=== PATIENT | female | born 1955 | race Caucasian/White ===

== ENCOUNTER 2017-03-20 11:38 | Inpatient (IN) | payer MEDICARE, OTHER ==
[2017-03-20 17:04] LABS: ADD MAN DIFF? NO
[2017-03-20] MEDS: CEFEPIME 2GM/50 ML (PMX) 50 ML IVPB (17:05)
[2017-03-20] MEDS: ONDANSETRON 4 MG INJ IV (17:05)
[2017-03-20 17:06] LABS: BASOPHILS % 0.2 % (0.0-2.0); EOSINOPHILS # 0.1 10^3/ul (0.0-0.5); EOSINOPHILS % 0.8 % (0.0-7.0); HEMOGLOBIN 10.3 g/dl (12.0-16.0); LYMPHOCYTES # 1.6 10^3/ul (0.8-2.9); LYMPHOCYTES % 16.3 % (15.0-51.0); MEAN CORPUSCULAR HEMOGLOBIN 31.7 pg (29.0-33.0); MEAN CORPUSCULAR HGB CONC 33.2 g/dl (32.0-37.0); MEAN CORPUSCULAR VOLUME 95.4 fl (82.0-101.0); MEAN PLATELET VOLUME 10.5 fl (7.4-10.4); MONOCYTE # 0.8 10^3/ul (0.3-0.9); MONOCYTES % 7.8 % (0.0-11.0); NEUTROPHIL # 7.4 10^3/ul (1.6-7.5); NEUTROPHILS % 74.5 % (39.0-77.0); PLATELET COUNT 161 10^3/UL (140-415); RED BLOOD COUNT 3.25 10^6/ul (4.20-5.40); RED CELL DISTRIBUTION WIDTH 14.1 % (11.5-14.5)
[2017-03-20] MEDS: HYDROmorphONE 0.5 MG/0.5 ML SYG IV (17:06)
[2017-03-20 17:23] LABS: INR 1.12; PROTIME 14.6 Sec (11.9-14.9); PT RATIO 1.1
[2017-03-20 17:24] LABS: PARTIAL THROMBOPLASTIN TIME 34.3 Sec (25.0-35.0)
[2017-03-20 17:29] LABS: ALANINE AMINOTRANSFERASE 34 IU/L (13-69); ALBUMIN 4.2 g/dl (3.3-4.9); ALBUMIN/GLOBULIN RATIO 1.23; ALKALINE PHOSPHATASE 96 IU/L (42-121); ANION GAP 18 (8-16); ASPARTATE AMINO TRANSFERASE 24 IU/L (15-46); BILIRUBIN,INDIRECT 0.3 mg/dl (0-1.1); BILIRUBIN,TOTAL 0.3 mg/dl (0.2-1.3); BLOOD UREA NITROGEN 39 mg/dl (7-20); CALCIUM 8.6 mg/dl (8.4-10.2); CARBON DIOXIDE 28 mmol/L (21-31); CHLORIDE 95 mmol/L (97-110); CREATININE 9.23 mg/dl (0.44-1.00); GLUCOSE 141 mg/dl (70-220); POTASSIUM 4.8 mmol/L (3.5-5.1); SODIUM 136 mmol/L (135-144); TOTAL PROTEIN 7.6 g/dl (6.1-8.1)
[2017-03-20 17:34] LABS: LACTIC ACID 1.2 mmol/L (0.5-2.0)
[2017-03-20 17:38] LABS: TROPONIN-I 0.014 ng/ml (0.00-0.12)
[2017-03-20] MEDS: VANCOMYCIN 1 GM (PMX) 250 ML IVPB (17:59)
[2017-03-20] MEDS ORDERED: ONDANSETRON 4 MG INJ IV (18:30)
[2017-03-20] MEDS ORDERED: ACETAMINOPHEN 325 MG TAB PO (18:30)
[2017-03-20] MEDS ORDERED: NACL 0.9% 3 ML SYG IV (19:30)
[2017-03-20] MEDS ORDERED: VANCOMYCIN IV PER PHARMACY XX (19:30)
[2017-03-20] MEDS: HYDROCODONE/APAP (5/325) TAB PO (19:37)
[2017-03-20 19:51] LABS: ERYTHROCYTE SEDIMENTATION RATE 54 mm/Hr (0-30)
[2017-03-20 21:35] LABS: LACTIC ACID 0.6 mmol/L (0.5-2.0)
[2017-03-20] MEDS: COLLAGENASE 30 GM TUBE TOP (23:00)
[2017-03-20] MEDS ORDERED: PENDING SANTYL ORDER FOR WOUND CARE XX (23:00)
[2017-03-20] MEDS ORDERED: COLLAGENASE 30 GM TUBE TOP (23:00)
[2017-03-20] MEDS: ACETAMINOPHEN 325 MG TAB PO (23:22)
[2017-03-20] MEDS: ATORVASTATIN 20 MG TAB PO (23:22)
[2017-03-20] MEDS: HEPARIN 5,000 UNIT/0.5 ML VIAL SC (23:30)
[2017-03-21 00:50] LABS: LACTIC ACID 0.9 mmol/L (0.5-2.0)
[2017-03-21] MEDS: COLLAGENASE 30 GM TUBE TOP ×2 (02:27→08:20)
[2017-03-21] MEDS: VANCOMYCIN 500MG/NS (PMX) 100 ML IVPB (02:27)
[2017-03-21] MEDS: PANTOPRAZOLE (EC) 40 MG TAB PO (05:38)
[2017-03-21 05:52] LABS: ADD MAN DIFF? NO
[2017-03-21 06:05] LABS: BASOPHILS % 0.3 % (0.0-2.0); EOSINOPHILS # 0.2 10^3/ul (0.0-0.5); EOSINOPHILS % 2.3 % (0.0-7.0); HEMATOCRIT 28.6 % (37.0-47.0); HEMOGLOBIN 9.3 g/dl (12.0-16.0); LYMPHOCYTES # 1.3 10^3/ul (0.8-2.9); LYMPHOCYTES % 18.9 % (15.0-51.0); MEAN CORPUSCULAR HEMOGLOBIN 31.3 pg (29.0-33.0); MEAN CORPUSCULAR HGB CONC 32.5 g/dl (32.0-37.0); MEAN CORPUSCULAR VOLUME 96.3 fl (82.0-101.0); MEAN PLATELET VOLUME 10.9 fl (7.4-10.4); MONOCYTE # 0.6 10^3/ul (0.3-0.9); MONOCYTES % 8.4 % (0.0-11.0); NEUTROPHIL # 4.8 10^3/ul (1.6-7.5); NEUTROPHILS % 69.8 % (39.0-77.0); PLATELET COUNT 137 10^3/UL (140-415); RED BLOOD COUNT 2.97 10^6/ul (4.20-5.40); RED CELL DISTRIBUTION WIDTH 14.3 % (11.5-14.5)
[2017-03-21 06:05] LABS: WHITE BLOOD COUNT 6.8 10^3/ul (4.8-10.8)
[2017-03-21 06:27] LABS: ANION GAP 15 (8-16); BLOOD UREA NITROGEN 46 mg/dl (7-20); CALCIUM 8.6 mg/dl (8.4-10.2); CARBON DIOXIDE 27 mmol/L (21-31); CHLORIDE 98 mmol/L (97-110); CREATININE 10.56 mg/dl (0.44-1.00); GLUCOSE 108 mg/dl (70-220); MAGNESIUM 2.4 mg/dl (1.7-2.5); PHOSPHORUS 5.1 mg/dl (2.5-4.9); POTASSIUM 4.4 mmol/L (3.5-5.1); SODIUM 136 mmol/L (135-144)
[2017-03-21 07:01] LABS: HEMOGLOBIN A1C 6.4 % (0-5.9)
[2017-03-21] MEDS: SEVELAMER 800 MG TAB PO ×3 (08:18→17:27)
[2017-03-21] MEDS: ASPIRIN (EC) 81 MG TAB PO (08:19)
[2017-03-21] MEDS: CALCIUM ACETATE 667 MG CAP PO ×3 (08:19→17:28)
[2017-03-21] MEDS: MULTIVIT/CA CARB/B CMPLX/FA TAB PO (08:20)
[2017-03-21] MEDS: HEPARIN 5,000 UNIT/0.5 ML VIAL SC ×2 (08:23→20:58)
[2017-03-21] MEDS: AMLODIPINE 10 MG TAB PO (08:24)
[2017-03-21] MEDS: ACETAMINOPHEN 325 MG TAB PO (13:38)
[2017-03-21] MEDS: CEFEPIME 1GM/50 ML (PMX) 50 ML IVPB (17:29)
[2017-03-21] MEDS: ATORVASTATIN 20 MG TAB PO (20:56)
[2017-03-22] MEDS: PANTOPRAZOLE (EC) 40 MG TAB PO (05:38)
[2017-03-22 06:43] LABS: ADD MAN DIFF? NO
[2017-03-22 06:44] LABS: ANION GAP 15 (8-16); BLOOD UREA NITROGEN 32 mg/dl (7-20); CALCIUM 8.6 mg/dl (8.4-10.2); CARBON DIOXIDE 32 mmol/L (21-31); CHLORIDE 95 mmol/L (97-110); GLUCOSE 137 mg/dl (70-220); MAGNESIUM 2.2 mg/dl (1.7-2.5); PHOSPHORUS 4.2 mg/dl (2.5-4.9); POTASSIUM 4.3 mmol/L (3.5-5.1); SODIUM 138 mmol/L (135-144)
[2017-03-22 06:50] LABS: BASOPHILS % 0.2 % (0.0-2.0); EOSINOPHILS # 0.2 10^3/ul (0.0-0.5); HEMOGLOBIN 9.3 g/dl (12.0-16.0); LYMPHOCYTES % 17.8 % (15.0-51.0); MEAN CORPUSCULAR HEMOGLOBIN 31.4 pg (29.0-33.0); MEAN CORPUSCULAR HGB CONC 33.2 g/dl (32.0-37.0); MEAN CORPUSCULAR VOLUME 94.6 fl (82.0-101.0); MEAN PLATELET VOLUME 11.2 fl (7.4-10.4); MONOCYTE # 0.6 10^3/ul (0.3-0.9); MONOCYTES % 9.8 % (0.0-11.0); NEUTROPHIL # 3.9 10^3/ul (1.6-7.5); NEUTROPHILS % 68.9 % (39.0-77.0); PLATELET COUNT 149 10^3/UL (140-415); RED BLOOD COUNT 2.96 10^6/ul (4.20-5.40); RED CELL DISTRIBUTION WIDTH 13.7 % (11.5-14.5)
[2017-03-22 06:50] LABS: WHITE BLOOD COUNT 5.7 10^3/ul (4.8-10.8)
[2017-03-22] MEDS: MULTIVIT/CA CARB/B CMPLX/FA TAB PO (08:20)
[2017-03-22] MEDS: SEVELAMER 800 MG TAB PO ×3 (08:20→16:59)
[2017-03-22] MEDS: ASPIRIN (EC) 81 MG TAB PO (08:21)
[2017-03-22] MEDS: CALCIUM ACETATE 667 MG CAP PO ×3 (08:21→17:00)
[2017-03-22] MEDS: COLLAGENASE 30 GM TUBE TOP (08:23)
[2017-03-22] MEDS: AMLODIPINE 10 MG TAB PO (08:24)
[2017-03-22] MEDS: HEPARIN 5,000 UNIT/0.5 ML VIAL SC ×2 (09:03→20:36)
[2017-03-22] MEDS: CEFEPIME 1GM/50 ML (PMX) 50 ML IVPB (16:58)
[2017-03-22] MEDS: ATORVASTATIN 20 MG TAB PO (20:33)
[2017-03-22] MEDS: HYDROCODONE/APAP (5/325) TAB PO (21:28)
[2017-03-22] MEDS: morphine 2 MG INJ IV (23:52)
[2017-03-23] MEDS: PANTOPRAZOLE (EC) 40 MG TAB PO (05:38)
[2017-03-23 06:50] LABS: VANCOMYCIN,RANDOM 13.9 ug/ml
[2017-03-23 07:11] LABS: ANION GAP 19 (8-16); BLOOD UREA NITROGEN 46 mg/dl (7-20); CALCIUM 8.3 mg/dl (8.4-10.2); CARBON DIOXIDE 28 mmol/L (21-31); CHLORIDE 97 mmol/L (97-110); CREATININE 9.46 mg/dl (0.44-1.00); GLUCOSE 121 mg/dl (70-220); MAGNESIUM 2.3 mg/dl (1.7-2.5); PHOSPHORUS 3.9 mg/dl (2.5-4.9); POTASSIUM 4.8 mmol/L (3.5-5.1); SODIUM 139 mmol/L (135-144)
[2017-03-23] MEDS: MULTIVIT/CA CARB/B CMPLX/FA TAB PO (08:40)
[2017-03-23] MEDS: ASPIRIN (EC) 81 MG TAB PO (08:40)
[2017-03-23] MEDS: CALCIUM ACETATE 667 MG CAP PO ×3 (08:40→18:04)
[2017-03-23] MEDS: SEVELAMER 800 MG TAB PO ×3 (08:41→18:03)
[2017-03-23] MEDS: HEPARIN 5,000 UNIT/0.5 ML VIAL SC ×2 (08:48→21:59)
[2017-03-23] MEDS: COLLAGENASE 30 GM TUBE TOP ×2 (09:00→17:40)
[2017-03-23] MEDS: AMLODIPINE 10 MG TAB PO (09:00)
[2017-03-23] MEDS: VANCOMYCIN 1 GM 250 ML IVPB (10:18)
[2017-03-23] MEDS: CEFEPIME 1GM/50 ML (PMX) 50 ML IVPB (16:04)
[2017-03-23] MEDS: LEVOFLOXACIN 500 MG TAB PO (18:03)
[2017-03-23 18:18] LABS: HEPATITIS B SURFACE ANTIGEN NEGATIVE (NEGATIVE)
[2017-03-23 18:46] LABS: HEPATITIS B SURFACE ANTIBODY POSITIVE (NEGATIVE)
[2017-03-23] MEDS: ATORVASTATIN 20 MG TAB PO (21:57)
[2017-03-23] MEDS: ACETAMINOPHEN 325 MG TAB PO (23:17)
[2017-03-24] MEDS: PANTOPRAZOLE (EC) 40 MG TAB PO (05:30)
[2017-03-24] MEDS: SEVELAMER 800 MG TAB PO ×2 (09:19→12:13)
[2017-03-24] MEDS: CALCIUM ACETATE 667 MG CAP PO ×2 (09:19→12:13)
[2017-03-24] MEDS: MULTIVIT/CA CARB/B CMPLX/FA TAB PO (09:19)
[2017-03-24] MEDS: ASPIRIN (EC) 81 MG TAB PO (09:20)
[2017-03-24] MEDS: AMLODIPINE 10 MG TAB PO (09:20)
[2017-03-24] MEDS: COLLAGENASE 30 GM TUBE TOP (09:21)
[2017-03-24] MEDS: HEPARIN 5,000 UNIT/0.5 ML VIAL SC (09:24)
== END 2017-03-24 12:45 | disposition home health service (06) | DRG 638 ==
LOC: E/R 11:38 → MS2 18:29
PROC: 5A1D70Z Performance of Urinary Filtration, Intermittent, Less than 6 Hours Per Day (ICD-10-PCS; 2017-03-20)
PROC: 5A1D70Z Performance of Urinary Filtration, Intermittent, Less than 6 Hours Per Day (ICD-10-PCS; 2017-03-23)
PROC: 5A1D70Z Performance of Urinary Filtration, Intermittent, Less than 6 Hours Per Day (ICD-10-PCS; principal; 2017-03-24)
DX: E11.621 Type 2 diabetes mellitus with foot ulcer (principal); M86.171 Other acute osteomyelitis, right ankle and foot; I12.0 Hypertensive chronic kidney disease with stage 5 chronic kidney disease or end stage renal disease; E11.22 Type 2 diabetes mellitus with diabetic chronic kidney disease; N18.6 End stage renal disease; L03.115 Cellulitis of right lower limb; E11.51 Type 2 diabetes mellitus with diabetic peripheral angiopathy without gangrene; E11.42 Type 2 diabetes mellitus with diabetic polyneuropathy; I25.10 Atherosclerotic heart disease of native coronary artery without angina pectoris; I25.5 Ischemic cardiomyopathy; L97.512 Non-pressure chronic ulcer of other part of right foot with fat layer exposed; Z79.4 Long term (current) use of insulin; Z99.2 Dependence on renal dialysis; Z89.431 Acquired absence of right foot
CPT/HCPCS: 36415; 71045; 73630; 73718; 80048; 80053; 80202; 83036; 83605; 83735; 84100; 84484; 85025; 85610; 85651; 85730; 86140; 86706; 87040; 87340; 90935; 93005; 96374; 96375; 99285-25

== ENCOUNTER 2017-07-17 08:53 | Emergency (ER) | payer MEDICARE, OTHER ==
[2017-07-17] MEDS: ONDANSETRON 4 MG INJ IV ×2 (12:02→12:49)
[2017-07-17] MEDS: morphine 4 MG/ML VIAL IV (12:02)
[2017-07-17] MEDS: SOD CHLORIDE 0.9% 1,000 ML IV (12:04)
[2017-07-17 12:31] LABS: ADD MAN DIFF? NO
[2017-07-17] MEDS: HYDROmorphONE 1 MG/5 ML IV SYRINGE IV (12:33)
[2017-07-17 12:34] LABS: BASOPHILS % 0.4 % (0.0-2.0); EOSINOPHILS # 0.3 10^3/ul (0.0-0.5); EOSINOPHILS % 3.7 % (0.0-7.0); HEMATOCRIT 32.4 % (37.0-47.0); HEMOGLOBIN 10.5 g/dl (12.0-16.0); LYMPHOCYTES # 1.4 10^3/ul (0.8-2.9); LYMPHOCYTES % 18.2 % (15.0-51.0); MEAN CORPUSCULAR HEMOGLOBIN 29.6 pg (29.0-33.0); MEAN CORPUSCULAR HGB CONC 32.4 g/dl (32.0-37.0); MEAN CORPUSCULAR VOLUME 91.3 fl (82.0-101.0); MONOCYTE # 0.5 10^3/ul (0.3-0.9); NEUTROPHIL # 5.4 10^3/ul (1.6-7.5); NEUTROPHILS % 70.4 % (39.0-77.0); PLATELET COUNT 173 10^3/UL (140-415); RED BLOOD COUNT 3.55 10^6/ul (4.20-5.40)
[2017-07-17 12:34] LABS: WHITE BLOOD COUNT 7.6 10^3/ul (4.8-10.8)
[2017-07-17 12:51] LABS: ALANINE AMINOTRANSFERASE 25 IU/L (13-69); ALBUMIN 4.3 g/dl (3.3-4.9); ALBUMIN/GLOBULIN RATIO 1.19; ALKALINE PHOSPHATASE 132 IU/L (42-121); ANION GAP 21 (8-16); ASPARTATE AMINO TRANSFERASE 22 IU/L (15-46); BILIRUBIN,INDIRECT 0.1 mg/dl (0-1.1); BILIRUBIN,TOTAL 0.1 mg/dl (0.2-1.3); BLOOD UREA NITROGEN 36 mg/dl (7-20); CALCIUM 8.2 mg/dl (8.4-10.2); CARBON DIOXIDE 28 mmol/L (21-31); CHLORIDE 97 mmol/L (97-110); CREATININE 8.15 mg/dl (0.44-1.00); GLUCOSE 140 mg/dl (70-220); SODIUM 141 mmol/L (135-144); TOTAL PROTEIN 7.9 g/dl (6.1-8.1)
[2017-07-17 13:20] LABS: INR 1.07; PARTIAL THROMBOPLASTIN TIME 33.3 Sec (25.0-35.0); PT RATIO 1.1
== END 2017-07-17 14:12 | disposition home or self-care (01) ==
LOC: E/R 08:53
DX: G44.209 Tension-type headache, unspecified, not intractable (principal); I12.0 Hypertensive chronic kidney disease with stage 5 chronic kidney disease or end stage renal disease; N18.6 End stage renal disease; Z99.2 Dependence on renal dialysis; Z79.82 Long term (current) use of aspirin
CPT/HCPCS: 70450; 80053; 85025; 85610; 85730; 93005; 96374; 96375; 96376; 99285-25

== ENCOUNTER 2017-07-19 19:53 | Inpatient (IN) | payer MEDICARE, OTHER ==
[2017-07-19] MEDS: ONDANSETRON 4 MG INJ IV (20:29)
[2017-07-19] MEDS: HYDROmorphONE 1 MG/5 ML IV SYRINGE IV (20:29)
[2017-07-19] MEDS: SODIUM CHLORIDE 0.9% 1L BAG IV* (20:29)
[2017-07-19] MEDS: ACETAMINOPHEN 500 MG TAB PO (20:29)
[2017-07-19 20:44] LABS: ADD MAN DIFF? NO
[2017-07-19 20:45] LABS: BASOPHILS % 0.3 % (0.0-2.0); EOSINOPHILS # 0.1 10^3/ul (0.0-0.5); EOSINOPHILS % 0.8 % (0.0-7.0); HEMATOCRIT 34.6 % (37.0-47.0); HEMOGLOBIN 10.9 g/dl (12.0-16.0); LYMPHOCYTES # 1.3 10^3/ul (0.8-2.9); LYMPHOCYTES % 14.5 % (15.0-51.0); MEAN CORPUSCULAR HGB CONC 31.5 g/dl (32.0-37.0); MEAN PLATELET VOLUME 10.6 fl (7.4-10.4); MONOCYTE # 0.6 10^3/ul (0.3-0.9); MONOCYTES % 7.1 % (0.0-11.0); NEUTROPHIL # 6.9 10^3/ul (1.6-7.5); PLATELET COUNT 207 10^3/UL (140-415); RED BLOOD COUNT 3.76 10^6/ul (4.20-5.40); RED CELL DISTRIBUTION WIDTH 13.8 % (11.5-14.5)
[2017-07-19 20:45] LABS: WHITE BLOOD COUNT 8.9 10^3/ul (4.8-10.8)
[2017-07-19 21:00] LABS: ALANINE AMINOTRANSFERASE 18 IU/L (13-69); ALBUMIN 4.5 g/dl (3.3-4.9); ALBUMIN/GLOBULIN RATIO 1.09; ALKALINE PHOSPHATASE 142 IU/L (42-121); ANION GAP 20 (8-16); ASPARTATE AMINO TRANSFERASE 23 IU/L (15-46); BILIRUBIN,INDIRECT 0.2 mg/dl (0-1.1); BILIRUBIN,TOTAL 0.2 mg/dl (0.2-1.3); BLOOD UREA NITROGEN 39 mg/dl (7-20); CALCIUM 8.4 mg/dl (8.4-10.2); CARBON DIOXIDE 32 mmol/L (21-31); CHLORIDE 93 mmol/L (97-110); CREATININE 8.57 mg/dl (0.44-1.00); GLUCOSE 197 mg/dl (70-220); POTASSIUM 5.2 mmol/L (3.5-5.1); SODIUM 140 mmol/L (135-144); TOTAL PROTEIN 8.6 g/dl (6.1-8.1)
[2017-07-19 21:03] LABS: LACTIC ACID 1.3 mmol/L (0.5-2.0)
[2017-07-19] MEDS: CLINDAMYCIN 900 MG/D5W (PMX) 50 ML IVPB (21:09)
[2017-07-19 21:10] LABS: INR 1.15; PARTIAL THROMBOPLASTIN TIME 32.6 Sec (25.0-35.0); PROTIME 14.9 Sec (11.9-14.9); PT RATIO 1.2
[2017-07-19 21:17] LABS: TROPONIN-I < 0.012 ng/ml (0.00-0.12)
[2017-07-19] MEDS: VANCOMYCIN 1 GM (PMX) 250 ML IVPB (21:56)
[2017-07-20 01:11] LABS: LACTIC ACID 0.8 mmol/L (0.5-2.0)
[2017-07-20] MEDS ORDERED: ALBUTEROL/IPRATROPIUM (NEB) 3 ML AMP HHN (03:30)
[2017-07-20] MEDS ORDERED: NACL 0.9% 3 ML SYG IV (03:30)
[2017-07-20] MEDS ORDERED: ONDANSETRON 4 MG INJ IV (03:30)
[2017-07-20 03:32] LABS: ADD MAN DIFF? NO
[2017-07-20 03:48] LABS: HEMOGLOBIN A1C 6.5 % (0-5.9)
[2017-07-20 03:54] LABS: LACTIC ACID 0.6 mmol/L (0.5-2.0)
[2017-07-20 03:56] LABS: ALANINE AMINOTRANSFERASE 17 IU/L (13-69); ALBUMIN 3.5 g/dl (3.3-4.9); ALBUMIN/GLOBULIN RATIO 1.06; ALKALINE PHOSPHATASE 105 IU/L (42-121); ANION GAP 18 (8-16); ASPARTATE AMINO TRANSFERASE 15 IU/L (15-46); BILIRUBIN,INDIRECT 0.1 mg/dl (0-1.1); BILIRUBIN,TOTAL 0.1 mg/dl (0.2-1.3); BLOOD UREA NITROGEN 43 mg/dl (7-20); CALCIUM 7.4 mg/dl (8.4-10.2); CARBON DIOXIDE 28 mmol/L (21-31); CHLORIDE 98 mmol/L (97-110); CHOL/HDL RATIO 2.9 RATIO; CHOLESTEROL 119 mg/dl (100-200); GLUCOSE 158 mg/dl (70-220); HDL CHOLESTEROL 40 mg/dl (35-98); LDL CHOLESTEROL,CALCULATED 62 mg/dl; MAGNESIUM 2.2 mg/dl (1.7-2.5); POTASSIUM 5.2 mmol/L (3.5-5.1); SODIUM 139 mmol/L (135-144); TOTAL PROTEIN 6.8 g/dl (6.1-8.1); TRIGLYCERIDES 86 mg/dl (0-149)
[2017-07-20] MEDS ORDERED: GLUCAGON 1 MG INJ IM (04:00)
[2017-07-20] MEDS ORDERED: GLUCOSE GEL 15 GRAM TUBE BUCCAL (04:00)
[2017-07-20] MEDS ORDERED: GLUCOSE GEL 15 GRAM TUBE PO ×2 (04:00)
[2017-07-20] MEDS ORDERED: DEXTROSE 50% 50 ML SYRINGE IV (04:00)
[2017-07-20 04:31] LABS: BASOPHILS % 0.3 % (0.0-2.0); EOSINOPHILS % 0.4 % (0.0-7.0); HEMATOCRIT 26.9 % (37.0-47.0); HEMOGLOBIN 8.6 g/dl (12.0-16.0); LYMPHOCYTES # 1.2 10^3/ul (0.8-2.9); MEAN CORPUSCULAR HEMOGLOBIN 29.4 pg (29.0-33.0); MEAN CORPUSCULAR VOLUME 91.8 fl (82.0-101.0); MEAN PLATELET VOLUME 11.2 fl (7.4-10.4); MONOCYTE # 0.6 10^3/ul (0.3-0.9); MONOCYTES % 7.9 % (0.0-11.0); NEUTROPHIL # 5.4 10^3/ul (1.6-7.5); PLATELET COUNT 144 10^3/UL (140-415); RED BLOOD COUNT 2.93 10^6/ul (4.20-5.40); RED CELL DISTRIBUTION WIDTH 13.8 % (11.5-14.5)
[2017-07-20 04:31] LABS: WHITE BLOOD COUNT 7.2 10^3/ul (4.8-10.8)
[2017-07-20] MEDS: PANTOPRAZOLE (EC) 40 MG TAB PO (05:37)
[2017-07-20] MEDS: INSULIN ASPART [NOVOLOG] 3 ML PEN SC ×4 (08:00→21:00)
[2017-07-20] MEDS: SEVELAMER 800 MG TAB PO ×3 (08:02→17:16)
[2017-07-20] MEDS: CALCIUM ACETATE 667 MG CAP PO ×3 (08:02→17:16)
[2017-07-20] MEDS: CEFEPIME 1GM/50 ML (PMX) 50 ML IVPB (08:06)
[2017-07-20] MEDS: ASPIRIN (EC) 81 MG TAB PO (08:07)
[2017-07-20] MEDS: DOCUSATE SODIUM 100 MG CAP PO ×3 (08:07→22:57)
[2017-07-20] MEDS: HEPARIN 5,000 UNIT/0.5 ML VIAL SC ×2 (08:09→23:01)
[2017-07-20] MEDS ORDERED: VANCOMYCIN IV PER PHARMACY XX (09:00)
[2017-07-20] MEDS: HYDROCODONE/APAP (5/325) TAB PO ×2 (10:11→20:54)
[2017-07-20] MEDS: AMLODIPINE 10 MG TAB PO (12:02)
[2017-07-20] MEDS: VANCOMYCIN 500MG/NS (PMX) 100 ML IVPB (12:03)
[2017-07-20 15:52] LABS: HEPATITIS B SURFACE ANTIGEN NEGATIVE (NEGATIVE)
[2017-07-20] MEDS: morphine 2 MG INJ IV (17:16)
[2017-07-20] MEDS: ATORVASTATIN 20 MG TAB PO (22:57)
[2017-07-20] MEDS: INSULIN GLARGINE [LANtus] 3 ML PEN SC (23:02)
[2017-07-21] MEDS: morphine 2 MG INJ IV ×4 (01:03→23:05)
[2017-07-21] MEDS: ACCU-CHEK XX (02:00)
[2017-07-21] MEDS: ACETAMINOPHEN 325 MG TAB PO (04:24)
[2017-07-21] MEDS: PANTOPRAZOLE (EC) 40 MG TAB PO (05:56)
[2017-07-21 06:10] LABS: ADD MAN DIFF? NO
[2017-07-21 06:18] LABS: BASOPHILS % 0.2 % (0.0-2.0); EOSINOPHILS # 0.1 10^3/ul (0.0-0.5); EOSINOPHILS % 0.6 % (0.0-7.0); HEMOGLOBIN 9.2 g/dl (12.0-16.0); LYMPHOCYTES # 0.9 10^3/ul (0.8-2.9); LYMPHOCYTES % 10.3 % (15.0-51.0); MEAN CORPUSCULAR HEMOGLOBIN 28.9 pg (29.0-33.0); MEAN CORPUSCULAR HGB CONC 31.7 g/dl (32.0-37.0); MEAN CORPUSCULAR VOLUME 91.2 fl (82.0-101.0); MEAN PLATELET VOLUME 10.8 fl (7.4-10.4); MONOCYTE # 0.6 10^3/ul (0.3-0.9); MONOCYTES % 7.2 % (0.0-11.0); NEUTROPHILS % 81.5 % (39.0-77.0); PLATELET COUNT 171 10^3/UL (140-415); RED BLOOD COUNT 3.18 10^6/ul (4.20-5.40); RED CELL DISTRIBUTION WIDTH 13.6 % (11.5-14.5)
[2017-07-21 06:18] LABS: WHITE BLOOD COUNT 8.6 10^3/ul (4.8-10.8)
[2017-07-21 06:33] LABS: ANION GAP 14 (8-16); BLOOD UREA NITROGEN 26 mg/dl (7-20); CARBON DIOXIDE 33 mmol/L (21-31); CHLORIDE 96 mmol/L (97-110); GLUCOSE 78 mg/dl (70-220); MAGNESIUM 2.1 mg/dl (1.7-2.5); PHOSPHORUS 4.3 mg/dl (2.5-4.9); POTASSIUM 5.1 mmol/L (3.5-5.1); SODIUM 138 mmol/L (135-144)
[2017-07-21] MEDS: SEVELAMER 800 MG TAB PO ×3 (06:33→17:02)
[2017-07-21] MEDS: INSULIN ASPART [NOVOLOG] 3 ML PEN SC ×4 (08:00→20:34)
[2017-07-21] MEDS: HEPARIN 5,000 UNIT/0.5 ML VIAL SC ×2 (08:31→20:33)
[2017-07-21] MEDS: ASPIRIN (EC) 81 MG TAB PO (08:31)
[2017-07-21] MEDS: CALCIUM ACETATE 667 MG CAP PO ×3 (08:32→17:05)
[2017-07-21] MEDS: DOCUSATE SODIUM 100 MG CAP PO ×3 (08:32→20:32)
[2017-07-21] MEDS: CEFEPIME 1GM/50 ML (PMX) 50 ML IVPB (08:33)
[2017-07-21] MEDS: AMLODIPINE 10 MG TAB PO (08:33)
[2017-07-21] MEDS: LISINOPRIL 10 MG TAB PO (17:02)
[2017-07-21] MEDS: ATORVASTATIN 20 MG TAB PO (20:30)
[2017-07-21] MEDS: INSULIN GLARGINE [LANtus] 3 ML PEN SC (20:34)
[2017-07-21] MEDS: SOD CHLORIDE 0.9% 1,000 ML IV (23:46)
[2017-07-22] MEDS: HYDROCODONE/APAP (5/325) TAB PO ×2 (00:56→10:20)
[2017-07-22] MEDS: INSULIN ASPART [NOVOLOG] 3 ML PEN SC ×6 (01:00→20:15)
[2017-07-22] MEDS: ACCU-CHEK XX ×2 (02:00→20:15)
[2017-07-22] MEDS: PANTOPRAZOLE (EC) 40 MG TAB PO (05:37)
[2017-07-22 05:47] LABS: ADD MAN DIFF? NO
[2017-07-22 05:51] LABS: WHITE BLOOD COUNT 6.4 10^3/ul (4.8-10.8)
[2017-07-22 05:51] LABS: BASOPHILS % 0.3 % (0.0-2.0); EOSINOPHILS # 0.1 10^3/ul (0.0-0.5); HEMATOCRIT 26.5 % (37.0-47.0); HEMOGLOBIN 8.3 g/dl (12.0-16.0); LYMPHOCYTES # 1.2 10^3/ul (0.8-2.9); LYMPHOCYTES % 18.2 % (15.0-51.0); MEAN CORPUSCULAR HEMOGLOBIN 28.9 pg (29.0-33.0); MEAN CORPUSCULAR HGB CONC 31.3 g/dl (32.0-37.0); MEAN CORPUSCULAR VOLUME 92.3 fl (82.0-101.0); MONOCYTE # 0.6 10^3/ul (0.3-0.9); MONOCYTES % 9.6 % (0.0-11.0); NEUTROPHIL # 4.4 10^3/ul (1.6-7.5); NEUTROPHILS % 69.6 % (39.0-77.0); PLATELET COUNT 161 10^3/UL (140-415); RED BLOOD COUNT 2.87 10^6/ul (4.20-5.40); RED CELL DISTRIBUTION WIDTH 13.5 % (11.5-14.5)
[2017-07-22 06:17] LABS: CREATINE KINASE 26 IU/L (23-200)
[2017-07-22 06:22] LABS: VANCOMYCIN,RANDOM 14.1 ug/ml
[2017-07-22 06:23] LABS: ALANINE AMINOTRANSFERASE 16 IU/L (13-69); ALBUMIN 3.1 g/dl (3.3-4.9); ALBUMIN/GLOBULIN RATIO 1.03; ALKALINE PHOSPHATASE 85 IU/L (42-121); ANION GAP 15 (8-16); ASPARTATE AMINO TRANSFERASE 14 IU/L (15-46); BLOOD UREA NITROGEN 39 mg/dl (7-20); CALCIUM 8.8 mg/dl (8.4-10.2); CARBON DIOXIDE 30 mmol/L (21-31); CHLORIDE 98 mmol/L (97-110); CREATININE 7.95 mg/dl (0.44-1.00); GLUCOSE 98 mg/dl (70-220); MAGNESIUM 2.2 mg/dl (1.7-2.5); POTASSIUM 5.2 mmol/L (3.5-5.1); SODIUM 138 mmol/L (135-144); TOTAL PROTEIN 6.1 g/dl (6.1-8.1)
[2017-07-22 06:29] LABS: CK INDEX 0.9; CK-MB 0.23 ng/ml (0.0-2.4); TROPONIN-I 0.017 ng/ml (0.00-0.12)
[2017-07-22] MEDS: SEVELAMER 800 MG TAB PO ×3 (06:31→17:36)
[2017-07-22 06:35] LABS: FREE T4 (FREE THYROXINE) 1.62 ng/dl (0.78-2.44)
[2017-07-22] MEDS: REGADENOSON 0.4 MG/5 ML SYG (09:05)
[2017-07-22] MEDS: AMLODIPINE 5 MG TAB PO (10:01)
[2017-07-22] MEDS: ASPIRIN (EC) 81 MG TAB PO (10:02)
[2017-07-22] MEDS: CALCIUM ACETATE 667 MG CAP PO ×3 (10:02→17:36)
[2017-07-22] MEDS: LISINOPRIL 10 MG TAB PO (10:02)
[2017-07-22] MEDS: DOCUSATE SODIUM 100 MG CAP PO ×3 (10:03→20:14)
[2017-07-22] MEDS: HEPARIN 5,000 UNIT/0.5 ML VIAL SC ×2 (10:04→20:12)
[2017-07-22] MEDS: SOD CHLORIDE 0.9% 1,000 ML IV (15:30)
[2017-07-22] MEDS: VANCOMYCIN 1 GM 250 ML IVPB (15:30)
[2017-07-22] MEDS: INSULIN GLARGINE [LANtus] 3 ML PEN SC (20:10)
[2017-07-22] MEDS: ATORVASTATIN 20 MG TAB PO (20:14)
[2017-07-22] MEDS: morphine LIQ (10 MG/5 ML) CUP PO (20:16)
[2017-07-23] MEDS: PANTOPRAZOLE (EC) 40 MG TAB PO (05:52)
[2017-07-23] MEDS: SEVELAMER 800 MG TAB PO ×3 (05:52→17:16)
[2017-07-23 06:31] LABS: ANION GAP 18 (8-16); BLOOD UREA NITROGEN 23 mg/dl (7-20); CALCIUM 8.9 mg/dl (8.4-10.2); CARBON DIOXIDE 28 mmol/L (21-31); CHLORIDE 97 mmol/L (97-110); CREATININE 5.56 mg/dl (0.44-1.00); GLUCOSE 79 mg/dl (70-220); POTASSIUM 4.2 mmol/L (3.5-5.1); SODIUM 139 mmol/L (135-144)
[2017-07-23] MEDS: INSULIN ASPART [NOVOLOG] 3 ML PEN SC ×4 (08:00→21:00)
[2017-07-23] MEDS: DOCUSATE SODIUM 100 MG CAP PO ×3 (08:17→21:12)
[2017-07-23] MEDS: ASPIRIN (EC) 81 MG TAB PO (08:18)
[2017-07-23] MEDS: CALCIUM ACETATE 667 MG CAP PO ×3 (08:18→17:16)
[2017-07-23] MEDS: LISINOPRIL 10 MG TAB PO (08:19)
[2017-07-23] MEDS: AMLODIPINE 5 MG TAB PO (08:19)
[2017-07-23] MEDS: HEPARIN 5,000 UNIT/0.5 ML VIAL SC ×2 (08:20→21:11)
[2017-07-23] MEDS: HYDROCODONE/APAP (5/325) TAB PO ×2 (10:20→21:13)
[2017-07-23] MEDS: INSULIN GLARGINE [LANtus] 3 ML PEN SC (21:10)
[2017-07-23] MEDS: ATORVASTATIN 20 MG TAB PO (21:12)
[2017-07-23] MEDS: ACCU-CHEK XX (21:13)
[2017-07-24] MEDS: PANTOPRAZOLE (EC) 40 MG TAB PO (05:43)
[2017-07-24 06:02] LABS: ADD MAN DIFF? NO
[2017-07-24 06:06] LABS: BASOPHILS % 0.5 % (0.0-2.0); EOSINOPHILS # 0.2 10^3/ul (0.0-0.5); EOSINOPHILS % 2.9 % (0.0-7.0); HEMATOCRIT 26.8 % (37.0-47.0); HEMOGLOBIN 8.7 g/dl (12.0-16.0); LYMPHOCYTES # 1.4 10^3/ul (0.8-2.9); LYMPHOCYTES % 21.4 % (15.0-51.0); MEAN CORPUSCULAR HEMOGLOBIN 29.1 pg (29.0-33.0); MEAN CORPUSCULAR HGB CONC 32.5 g/dl (32.0-37.0); MEAN CORPUSCULAR VOLUME 89.6 fl (82.0-101.0); MEAN PLATELET VOLUME 10.9 fl (7.4-10.4); MONOCYTE # 0.6 10^3/ul (0.3-0.9); MONOCYTES % 9.8 % (0.0-11.0); NEUTROPHIL # 4.1 10^3/ul (1.6-7.5); NEUTROPHILS % 65.1 % (39.0-77.0); PLATELET COUNT 175 10^3/UL (140-415); RED BLOOD COUNT 2.99 10^6/ul (4.20-5.40); RED CELL DISTRIBUTION WIDTH 13.2 % (11.5-14.5)
[2017-07-24 06:06] LABS: WHITE BLOOD COUNT 6.3 10^3/ul (4.8-10.8)
[2017-07-24 06:41] LABS: ANION GAP 19 (8-16); BLOOD UREA NITROGEN 32 mg/dl (7-20); CALCIUM 8.9 mg/dl (8.4-10.2); CARBON DIOXIDE 26 mmol/L (21-31); CHLORIDE 98 mmol/L (97-110); GLUCOSE 74 mg/dl (70-220); POTASSIUM 4.5 mmol/L (3.5-5.1); SODIUM 138 mmol/L (135-144)
[2017-07-24] MEDS: SEVELAMER 800 MG TAB PO ×3 (07:30→17:21)
[2017-07-24] MEDS: CALCIUM ACETATE 667 MG CAP PO ×3 (07:35→17:21)
[2017-07-24] MEDS: INSULIN ASPART [NOVOLOG] 3 ML PEN SC ×4 (08:00→21:00)
[2017-07-24] MEDS: ASPIRIN (EC) 81 MG TAB PO (08:17)
[2017-07-24] MEDS: DOCUSATE SODIUM 100 MG CAP PO ×3 (08:17→22:00)
[2017-07-24] MEDS: POLYETHYLENE GLYCOL 17 GM PACKET PO (08:17)
[2017-07-24] MEDS: LISINOPRIL 20 MG TAB PO (08:18)
[2017-07-24] MEDS: AMLODIPINE 2.5 MG TAB PO (08:18)
[2017-07-24] MEDS: HEPARIN 5,000 UNIT/0.5 ML VIAL SC ×2 (08:18→21:00)
[2017-07-24] MEDS: DEXTROSE 50% 50 ML SYRINGE IV (08:30)
[2017-07-24] MEDS: DEXTROSE 5%-0.45% NACL 1,000 ML IV (08:38)
[2017-07-24] MEDS: ATORVASTATIN 20 MG TAB PO (22:00)
[2017-07-24] MEDS: INSULIN GLARGINE [LANtus] 3 ML PEN SC (22:02)
[2017-07-25] MEDS: DEXTROSE 5%-0.45% NACL 1,000 ML IV (00:10)
[2017-07-25] MEDS: HYDROCODONE/APAP (5/325) TAB PO ×3 (00:59→23:10)
[2017-07-25] MEDS: INSULIN ASPART [NOVOLOG] 3 ML PEN SC ×7 (01:00→21:00)
[2017-07-25] MEDS: ACCU-CHEK XX (02:00)
[2017-07-25] MEDS: PANTOPRAZOLE (EC) 40 MG TAB PO (06:00)
[2017-07-25 06:55] LABS: VANCOMYCIN,RANDOM 18.2 ug/ml
[2017-07-25] MEDS ORDERED: PROPOFOL 200 MG INJ (07:00)
[2017-07-25] MEDS ORDERED: LIDOCAINE 2% (SDV) 5 ML INJ (07:00)
[2017-07-25] MEDS: SEVELAMER 800 MG TAB PO ×4 (07:30→17:36)
[2017-07-25] MEDS: CALCIUM ACETATE 667 MG CAP PO ×4 (07:35→17:36)
[2017-07-25] MEDS ORDERED: FENTAnyl 50 MCG/ML VIAL (07:57)
[2017-07-25] MEDS ORDERED: CEFAZOLIN 1 GM INJ (08:06)
[2017-07-25] MEDS: DOCUSATE SODIUM 100 MG CAP PO ×4 (08:15→21:07)
[2017-07-25] MEDS: LISINOPRIL 20 MG TAB PO ×2 (08:15→09:54)
[2017-07-25] MEDS: POLYETHYLENE GLYCOL 17 GM PACKET PO (08:15)
[2017-07-25] MEDS: ASPIRIN (EC) 81 MG TAB PO (08:15)
[2017-07-25] MEDS: HEPARIN 5,000 UNIT/0.5 ML VIAL SC ×2 (08:15→21:00)
[2017-07-25] MEDS: AMLODIPINE 2.5 MG TAB PO ×2 (08:15→09:55)
[2017-07-25] MEDS: POLYMYXIN/BACITRACIN 1L IRRIG (08:24)
[2017-07-25] MEDS: BUPIVACAINE 0.5% (SDV) 30 ML INJ (08:24)
[2017-07-25] MEDS ORDERED: FENTAnyl 50 MCG/ML VIAL IV (09:00)
[2017-07-25] MEDS ORDERED: ALBUTEROL 0.083% (NEB) 2.5 MG/3 ML AMP HHN (09:00)
[2017-07-25] MEDS ORDERED: HYDROCODONE/APAP (5/325) TAB PO (09:00)
[2017-07-25] MEDS ORDERED: HYDROmorphONE (0.2 MG/ML) 10ML SYG IV ×2 (09:00)
[2017-07-25] MEDS ORDERED: DIPHENHYDRAMINE 50 MG INJ IV (09:00)
[2017-07-25] MEDS ORDERED: ONDANSETRON 4 MG INJ IV (09:00)
[2017-07-25] MEDS: morphine LIQ (10 MG/5 ML) CUP PO (14:13)
[2017-07-25] MEDS: VANCOMYCIN 1 GM 250 ML IVPB (17:37)
[2017-07-25] MEDS: EPOETIN 3000 UNITS/1 ML INJ (ESRD) SC (18:15)
[2017-07-25] MEDS: ACETAMINOPHEN 325 MG TAB PO (21:06)
[2017-07-25] MEDS: ATORVASTATIN 20 MG TAB PO (21:08)
[2017-07-25] MEDS: INSULIN GLARGINE [LANtus] 3 ML PEN SC (21:11)
[2017-07-26] MEDS: ACCU-CHEK XX ×2 (02:00)
[2017-07-26] MEDS: PANTOPRAZOLE (EC) 40 MG TAB PO (05:27)
[2017-07-26 06:41] LABS: ALANINE AMINOTRANSFERASE 13 IU/L (13-69); ALBUMIN 3.5 g/dl (3.3-4.9); ALBUMIN/GLOBULIN RATIO 0.97; ALKALINE PHOSPHATASE 110 IU/L (42-121); ANION GAP 17 (8-16); ASPARTATE AMINO TRANSFERASE 18 IU/L (15-46); BLOOD UREA NITROGEN 29 mg/dl (7-20); CALCIUM 8.8 mg/dl (8.4-10.2); CARBON DIOXIDE 25 mmol/L (21-31); CHLORIDE 100 mmol/L (97-110); CREATININE 7.17 mg/dl (0.44-1.00); GLUCOSE 84 mg/dl (70-220); POTASSIUM 4.4 mmol/L (3.5-5.1); SODIUM 138 mmol/L (135-144); TOTAL PROTEIN 7.1 g/dl (6.1-8.1)
[2017-07-26] MEDS: INSULIN ASPART [NOVOLOG] 3 ML PEN SC ×4 (08:00→20:18)
[2017-07-26] MEDS: DOCUSATE SODIUM 100 MG CAP PO ×3 (08:54→20:11)
[2017-07-26] MEDS: POLYETHYLENE GLYCOL 17 GM PACKET PO (08:54)
[2017-07-26] MEDS: CALCIUM ACETATE 667 MG CAP PO ×3 (08:55→16:55)
[2017-07-26] MEDS: ASPIRIN (EC) 81 MG TAB PO (08:55)
[2017-07-26] MEDS: AMLODIPINE 2.5 MG TAB PO (08:56)
[2017-07-26] MEDS: LISINOPRIL 20 MG TAB PO (08:56)
[2017-07-26] MEDS: SEVELAMER 800 MG TAB PO ×3 (08:56→16:55)
[2017-07-26] MEDS: HEPARIN 5,000 UNIT/0.5 ML VIAL SC ×2 (08:59→20:15)
[2017-07-26] MEDS: HYDROCODONE/APAP (5/325) TAB PO ×2 (09:13→20:10)
[2017-07-26] MEDS: ATORVASTATIN 20 MG TAB PO (20:10)
[2017-07-26] MEDS: INSULIN GLARGINE [LANtus] 3 ML PEN SC (20:20)
[2017-07-27] MEDS: ACCU-CHEK XX ×2 (02:00)
[2017-07-27] MEDS: HYDROCODONE/APAP (5/325) TAB PO (02:09)
[2017-07-27] MEDS: PANTOPRAZOLE (EC) 40 MG TAB PO (05:25)
[2017-07-27 07:13] LABS: ADD MAN DIFF? NO
[2017-07-27 07:20] LABS: BASOPHILS % 0.4 % (0.0-2.0); EOSINOPHILS # 0.2 10^3/ul (0.0-0.5); EOSINOPHILS % 2.2 % (0.0-7.0); HEMATOCRIT 28.1 % (37.0-47.0); HEMOGLOBIN 8.8 g/dl (12.0-16.0); LYMPHOCYTES # 1.5 10^3/ul (0.8-2.9); LYMPHOCYTES % 20.6 % (15.0-51.0); MEAN CORPUSCULAR HEMOGLOBIN 28.2 pg (29.0-33.0); MEAN CORPUSCULAR HGB CONC 31.3 g/dl (32.0-37.0); MEAN CORPUSCULAR VOLUME 90.1 fl (82.0-101.0); MONOCYTE # 0.6 10^3/ul (0.3-0.9); MONOCYTES % 8.3 % (0.0-11.0); NEUTROPHIL # 4.9 10^3/ul (1.6-7.5); NEUTROPHILS % 67.8 % (39.0-77.0); PLATELET COUNT 207 10^3/UL (140-415); RED BLOOD COUNT 3.12 10^6/ul (4.20-5.40); RED CELL DISTRIBUTION WIDTH 13.6 % (11.5-14.5)
[2017-07-27 07:20] LABS: WHITE BLOOD COUNT 7.3 10^3/ul (4.8-10.8)
[2017-07-27 07:49] LABS: INR 1.12; PROTIME 14.6 Sec (11.9-14.9); PT RATIO 1.1
[2017-07-27 07:50] LABS: PARTIAL THROMBOPLASTIN TIME 36.4 Sec (25.0-35.0)
[2017-07-27 07:55] LABS: ALANINE AMINOTRANSFERASE 14 IU/L (13-69); ALBUMIN 3.5 g/dl (3.3-4.9); ALBUMIN/GLOBULIN RATIO 0.92; ALKALINE PHOSPHATASE 90 IU/L (42-121); ANION GAP 16 (8-16); ASPARTATE AMINO TRANSFERASE 32 IU/L (15-46); BLOOD UREA NITROGEN 41 mg/dl (7-20); CALCIUM 9.4 mg/dl (8.4-10.2); CARBON DIOXIDE 28 mmol/L (21-31); CHLORIDE 100 mmol/L (97-110); CREATININE 9.31 mg/dl (0.44-1.00); GLUCOSE 77 mg/dl (70-220); POTASSIUM 4.8 mmol/L (3.5-5.1); SODIUM 139 mmol/L (135-144); TOTAL PROTEIN 7.3 g/dl (6.1-8.1)
[2017-07-27] MEDS: INSULIN ASPART [NOVOLOG] 3 ML PEN SC ×4 (08:00→21:00)
[2017-07-27] MEDS: AMLODIPINE 2.5 MG TAB PO (08:01)
[2017-07-27] MEDS: LISINOPRIL 20 MG TAB PO (08:25)
[2017-07-27] MEDS: SEVELAMER 800 MG TAB PO ×3 (08:25→17:25)
[2017-07-27] MEDS: ASPIRIN (EC) 81 MG TAB PO (08:25)
[2017-07-27] MEDS: POLYETHYLENE GLYCOL 17 GM PACKET PO (08:25)
[2017-07-27] MEDS: DOCUSATE SODIUM 100 MG CAP PO ×3 (08:26→21:00)
[2017-07-27] MEDS: HEPARIN 5,000 UNIT/0.5 ML VIAL SC ×2 (08:27→21:00)
[2017-07-27] MEDS: CALCIUM ACETATE 667 MG CAP PO ×3 (09:13→17:25)
[2017-07-27] MEDS: INSULIN GLARGINE [LANtus] 3 ML PEN SC (20:00)
[2017-07-27] MEDS: ATORVASTATIN 20 MG TAB PO (21:00)
[2017-07-28] MEDS: ACCU-CHEK XX ×2 (02:00)
[2017-07-28] MEDS: MAGNESIUM HYDROXIDE 30ML CUP PO ×2 (02:36→11:13)
[2017-07-28] MEDS: EPOETIN 3000 UNITS/1 ML INJ (ESRD) SC (02:38)
[2017-07-28] MEDS: PANTOPRAZOLE (EC) 40 MG TAB PO (05:49)
[2017-07-28] MEDS: INSULIN ASPART [NOVOLOG] 3 ML PEN SC ×2 (08:00→12:03)
[2017-07-28] MEDS: SEVELAMER 800 MG TAB PO ×2 (08:11→11:59)
[2017-07-28] MEDS: CALCIUM ACETATE 667 MG CAP PO ×2 (08:11→12:00)
[2017-07-28] MEDS: DOCUSATE SODIUM 100 MG CAP PO ×2 (08:12→12:43)
[2017-07-28] MEDS: POLYETHYLENE GLYCOL 17 GM PACKET PO (08:12)
[2017-07-28] MEDS: ASPIRIN (EC) 81 MG TAB PO (08:13)
[2017-07-28] MEDS: LISINOPRIL 20 MG TAB PO (08:14)
[2017-07-28] MEDS: HEPARIN 5,000 UNIT/0.5 ML VIAL SC (08:16)
[2017-07-28] MEDS: BISACODYL 10 MG SUPP PR (12:55)
== END 2017-07-28 16:28 | disposition home or self-care (01) | DRG 623 ==
LOC: E/R 19:53 → PP2 22:26
PROC: 0JBR0ZZ Excision of Left Foot Subcutaneous Tissue and Fascia, Open Approach (ICD-10-PCS; principal; 2017-07-25 07:30)
PROC: 0J9R0ZZ Drainage of Left Foot Subcutaneous Tissue and Fascia, Open Approach (ICD-10-PCS; 2017-07-25 07:30)
PROC: 5A1D70Z Performance of Urinary Filtration, Intermittent, Less than 6 Hours Per Day (ICD-10-PCS; 2017-07-25 07:55)
DX: E11.621 Type 2 diabetes mellitus with foot ulcer (principal); M86.672 Other chronic osteomyelitis, left ankle and foot; L03.116 Cellulitis of left lower limb; I42.9 Cardiomyopathy, unspecified; I13.2 Hypertensive heart and chronic kidney disease with heart failure and with stage 5 chronic kidney disease, or end stage renal disease; I50.22 Chronic systolic (congestive) heart failure; M84.478A Pathological fracture, left toe(s), initial encounter for fracture; L02.612 Cutaneous abscess of left foot; E11.69 Type 2 diabetes mellitus with other specified complication; I25.5 Ischemic cardiomyopathy; E11.42 Type 2 diabetes mellitus with diabetic polyneuropathy; L97.522 Non-pressure chronic ulcer of other part of left foot with fat layer exposed; I27.20 Pulmonary hypertension, unspecified; N18.6 End stage renal disease; E11.22 Type 2 diabetes mellitus with diabetic chronic kidney disease; I25.10 Atherosclerotic heart disease of native coronary artery without angina pectoris; I44.7 Left bundle-branch block, unspecified; E11.51 Type 2 diabetes mellitus with diabetic peripheral angiopathy without gangrene; I70.209 Unspecified atherosclerosis of native arteries of extremities, unspecified extremity; D63.1 Anemia in chronic kidney disease; E78.5 Hyperlipidemia, unspecified; Z79.82 Long term (current) use of aspirin; Z99.2 Dependence on renal dialysis; Z89.411 Acquired absence of right great toe; Z89.421 Acquired absence of other right toe(s); Z89.431 Acquired absence of right foot
CPT/HCPCS: 36415; 70450; 71045; 73630-LT; 73718; 78452; 80048; 80053; 80061; 80202; 82550; 82553; 82962; 83036; 83605; 83735; 84100; 84439; 84443; 84484; 85025; 85610; 85730; 87040; 87070; 87075; 87102; 87116; 87340; 90935; 93005; 93017; 93306; 96365; 96374; 96375; 96376; 97110; 97116; 97162; 99285-25; G0378

== ENCOUNTER → 2017-10-13 | Outpatient (CLI) | payer MEDICARE, OTHER | END | disposition home or self-care (01) | LOC: RAD 14:53 | DX: M25.572 Pain in left ankle and joints of left foot (principal) ==

== ENCOUNTER 2018-05-25 08:57 | Emergency (ER) | payer MEDICARE, OTHER ==
[2018-05-25] MEDS: HYDROCODONE/APAP (5/325) TAB PO (11:19)
== END 2018-05-25 14:41 | disposition home or self-care (01) ==
LOC: FTE 08:57
DX: S52.031A Displaced fracture of olecranon process with intraarticular extension of right ulna, initial encounter for closed fracture (principal); I10 Essential (primary) hypertension; W18.39XA Other fall on same level, initial encounter; Y92.9 Unspecified place or not applicable; Z79.82 Long term (current) use of aspirin
CPT/HCPCS: 29105; 73090-RT; 99283-25

== ENCOUNTER 2018-05-27 13:20 | Inpatient (IN) | payer MEDICARE, OTHER ==
[2018-05-27 17:18] LABS: ADD MAN DIFF? NO
[2018-05-27 17:24] LABS: BASOPHILS % 0.5 % (0.0-2.0); EOSINOPHILS # 0.1 10^3/ul (0.0-0.5); EOSINOPHILS % 1.3 % (0.0-7.0); HEMATOCRIT 39.8 % (37.0-47.0); HEMOGLOBIN 12.3 g/dl (12.0-16.0); LYMPHOCYTES # 1.8 10^3/ul (0.8-2.9); LYMPHOCYTES % 29.2 % (15.0-51.0); MEAN CORPUSCULAR HEMOGLOBIN 30.4 pg (29.0-33.0); MEAN CORPUSCULAR HGB CONC 30.9 g/dl (32.0-37.0); MEAN CORPUSCULAR VOLUME 98.3 fl (82.0-101.0); MEAN PLATELET VOLUME 10.9 fl (7.4-10.4); MONOCYTE # 0.5 10^3/ul (0.3-0.9); MONOCYTES % 8.1 % (0.0-11.0); NEUTROPHIL # 3.7 10^3/ul (1.6-7.5); NEUTROPHILS % 60.7 % (39.0-77.0); PLATELET COUNT 185 10^3/UL (140-415); RED BLOOD COUNT 4.05 10^6/ul (4.20-5.40)
[2018-05-27 17:43] LABS: ALBUMIN 4.4 g/dl (3.3-4.9); ALKALINE PHOSPHATASE 168 IU/L (42-121); ANION GAP 19 (5-13); ASPARTATE AMINO TRANSFERASE 24 IU/L (15-46); BILIRUBIN,INDIRECT 0.2 mg/dl (0-1.1); BILIRUBIN,TOTAL 0.2 mg/dl (0.2-1.3); BLOOD UREA NITROGEN 52 mg/dl (7-20); CALCIUM 8.7 mg/dl (8.4-10.2); CARBON DIOXIDE 28 mmol/L (21-31); CHLORIDE 95 mmol/L (97-110); CREATININE 7.98 mg/dl (0.44-1.00); Estimated GFR 5 mL/min (>60); GLUCOSE 188 mg/dl (70-220); POTASSIUM 5.4 mmol/L (3.5-5.1); SODIUM 142 mmol/L (135-144); TOTAL PROTEIN 8.4 g/dl (6.1-8.1)
[2018-05-27 17:44] LABS: INR 1.01; PROTIME 13.4 Sec (11.9-14.9)
[2018-05-27 17:45] LABS: PARTIAL THROMBOPLASTIN TIME 29.2 Sec (23.0-35.0)
[2018-05-27 17:47] LABS: ALANINE AMINOTRANSFERASE < 6 IU/L (13-69)
[2018-05-27] MEDS: morphine 2 MG INJ IV (17:53)
[2018-05-27] MEDS: ONDANSETRON 4 MG INJ IV (17:53)
[2018-05-27] MEDS ORDERED: ONDANSETRON 4 MG INJ IV (19:30)
[2018-05-27] MEDS ORDERED: ACETAMINOPHEN 325 MG TAB PO ×2 (19:30→20:30)
[2018-05-27] MEDS ORDERED: NACL 0.9% 3 ML SYG IV (20:30)
[2018-05-27] MEDS ORDERED: LISINOPRIL 20 MG TAB PO (20:30)
[2018-05-27] MEDS: hydrALAzine 20 MG INJ IV (20:32)
[2018-05-27 21:55] LABS: CREATINE KINASE 68 IU/L (23-200)
[2018-05-27 22:08] LABS: CK INDEX 0.6; CK-MB 0.44 ng/ml (0.0-2.4); TROPONIN-I 0.015 ng/ml (0.000-0.120)
[2018-05-27] MEDS: ATORVASTATIN 20 MG TAB PO (22:30)
[2018-05-28] MEDS: SOD CHLORIDE 0.9% 1,000 ML IV
[2018-05-28] MEDS ORDERED: hydrALAzine 20 MG INJ IV (00:30)
[2018-05-28] MEDS: INSULIN ASPART [NOVOLOG] 3 ML PEN SC ×6 (00:45→21:00)
[2018-05-28] MEDS ORDERED: GLUCAGON 1 MG INJ IM (01:00)
[2018-05-28] MEDS ORDERED: GLUCOSE GEL 15 GRAM TUBE PO ×2 (01:00)
[2018-05-28] MEDS ORDERED: GLUCOSE GEL 15 GRAM TUBE BUCCAL (01:00)
[2018-05-28] MEDS ORDERED: DEXTROSE 50% 50 ML SYRINGE IV ×2 (01:00)
[2018-05-28 03:22] LABS: ADD MAN DIFF? NO
[2018-05-28 03:28] LABS: BASOPHILS % 0.6 % (0.0-2.0); EOSINOPHILS # 0.2 10^3/ul (0.0-0.5); EOSINOPHILS % 2.8 % (0.0-7.0); HEMATOCRIT 34.8 % (37.0-47.0); HEMOGLOBIN 10.9 g/dl (12.0-16.0); LYMPHOCYTES # 1.7 10^3/ul (0.8-2.9); MEAN CORPUSCULAR HEMOGLOBIN 30.4 pg (29.0-33.0); MEAN CORPUSCULAR HGB CONC 31.3 g/dl (32.0-37.0); MEAN CORPUSCULAR VOLUME 97.2 fl (82.0-101.0); MONOCYTE # 0.5 10^3/ul (0.3-0.9); MONOCYTES % 8.3 % (0.0-11.0); NEUTROPHILS % 56.1 % (39.0-77.0); PLATELET COUNT 182 10^3/UL (140-415); RED BLOOD COUNT 3.58 10^6/ul (4.20-5.40); RED CELL DISTRIBUTION WIDTH 14.1 % (11.5-14.5)
[2018-05-28 03:28] LABS: WHITE BLOOD COUNT 5.4 10^3/ul (4.8-10.8)
[2018-05-28 03:39] LABS: HEMOGLOBIN A1C 6.4 % (0-5.9)
[2018-05-28 03:41] LABS: CREATINE KINASE 55 IU/L (23-200)
[2018-05-28 03:43] LABS: ALANINE AMINOTRANSFERASE 8 IU/L (13-69); ALBUMIN 3.8 g/dl (3.3-4.9); ALBUMIN/GLOBULIN RATIO 1.15; ALKALINE PHOSPHATASE 131 IU/L (42-121); ANION GAP 13 (5-13); ASPARTATE AMINO TRANSFERASE 18 IU/L (15-46); BILIRUBIN,INDIRECT 0.2 mg/dl (0-1.1); BILIRUBIN,TOTAL 0.2 mg/dl (0.2-1.3); BLOOD UREA NITROGEN 54 mg/dl (7-20); CALCIUM 8.3 mg/dl (8.4-10.2); CARBON DIOXIDE 30 mmol/L (21-31); CHLORIDE 97 mmol/L (97-110); CHOLESTEROL 195 mg/dl (100-200); CREATININE 8.73 mg/dl (0.44-1.00); Estimated GFR 5 mL/min (>60); GLUCOSE 176 mg/dl (70-220); HDL CHOLESTEROL 39 mg/dl (35-98); LDL CHOLESTEROL,CALCULATED 128 mg/dl; MAGNESIUM 2.4 mg/dl (1.7-2.5); POTASSIUM 4.7 mmol/L (3.5-5.1); SODIUM 140 mmol/L (135-144); TOTAL PROTEIN 7.1 g/dl (6.1-8.1); TRIGLYCERIDES 142 mg/dl (0-149)
[2018-05-28 03:54] LABS: CK INDEX 0.6; CK-MB 0.35 ng/ml (0.0-2.4); TROPONIN-I 0.026 ng/ml (0.000-0.120)
[2018-05-28] MEDS: PANTOPRAZOLE (EC) 40 MG TAB PO (05:36)
[2018-05-28] MEDS: SEVELAMER 800 MG TAB PO ×2 (07:00→11:30)
[2018-05-28] MEDS: CALCIUM ACETATE 667 MG CAP PO ×3 (08:05→17:36)
[2018-05-28] MEDS: AMLODIPINE 10 MG TAB PO (08:09)
[2018-05-28] MEDS ORDERED: PENDING SANTYL ORDER FOR WOUND CARE XX (09:00)
[2018-05-28] MEDS ORDERED: NON-FORMULARY/PATIENT OWN MED (Omeprazole* 20 MG) XX (09:00)
[2018-05-28 13:35] LABS: HEPATITIS B SURFACE ANTIGEN NEGATIVE (NEGATIVE)
[2018-05-28] MEDS: SEVELAMER CARBONATE 800 MG TABLET PO (17:36)
[2018-05-28] MEDS: HYDROCODONE/APAP (5/325) TAB PO (18:06)
[2018-05-28 19:48] LABS: CREATINE KINASE 53 IU/L (23-200)
[2018-05-28 20:01] LABS: CK INDEX 0.4; CK-MB < 0.22 ng/ml (0.0-2.4); TROPONIN-I 0.013 ng/ml (0.000-0.120)
[2018-05-28] MEDS: ATORVASTATIN 40 MG TAB PO (21:06)
[2018-05-28] MEDS: DOCUSATE SODIUM 100 MG CAP PO (21:06)
[2018-05-28] MEDS: DIPHENHYDRAMINE 50 MG CAP PO (21:06)
[2018-05-29] MEDS: INSULIN ASPART [NOVOLOG] 3 ML PEN SC ×6 (01:43→20:20)
[2018-05-29] MEDS: PANTOPRAZOLE (EC) 40 MG TAB PO (05:46)
[2018-05-29 06:39] LABS: ADD MAN DIFF? NO
[2018-05-29 06:43] LABS: WHITE BLOOD COUNT 5.5 10^3/ul (4.8-10.8)
[2018-05-29 06:43] LABS: BASOPHILS % 0.5 % (0.0-2.0); EOSINOPHILS # 0.1 10^3/ul (0.0-0.5); EOSINOPHILS % 2.6 % (0.0-7.0); HEMATOCRIT 33.4 % (37.0-47.0); HEMOGLOBIN 10.7 g/dl (12.0-16.0); LYMPHOCYTES # 1.8 10^3/ul (0.8-2.9); LYMPHOCYTES % 32.9 % (15.0-51.0); MEAN CORPUSCULAR HEMOGLOBIN 30.8 pg (29.0-33.0); MEAN CORPUSCULAR VOLUME 96.3 fl (82.0-101.0); MEAN PLATELET VOLUME 11.4 fl (7.4-10.4); MONOCYTE # 0.5 10^3/ul (0.3-0.9); MONOCYTES % 8.2 % (0.0-11.0); NEUTROPHILS % 55.6 % (39.0-77.0); PLATELET COUNT 170 10^3/UL (140-415); RED BLOOD COUNT 3.47 10^6/ul (4.20-5.40); RED CELL DISTRIBUTION WIDTH 14.1 % (11.5-14.5)
[2018-05-29] MEDS: SEVELAMER CARBONATE 800 MG TABLET PO ×3 (07:00→18:00)
[2018-05-29 07:09] LABS: ANION GAP 18 (5-13); BLOOD UREA NITROGEN 73 mg/dl (7-20); CALCIUM 8.2 mg/dl (8.4-10.2); CARBON DIOXIDE 28 mmol/L (21-31); CHLORIDE 93 mmol/L (97-110); CREATININE 10.15 mg/dl (0.44-1.00); Estimated GFR 4 mL/min (>60); GLUCOSE 150 mg/dl (70-220); MAGNESIUM 2.5 mg/dl (1.7-2.5); PHOSPHORUS 8.1 mg/dl (2.5-4.9); POTASSIUM 5.7 mmol/L (3.5-5.1); SODIUM 139 mmol/L (135-144)
[2018-05-29] MEDS: CALCIUM ACETATE 667 MG CAP PO ×3 (08:00→18:00)
[2018-05-29] MEDS ORDERED: MIDAZOLAM 1 MG/ML 2 ML INJ (08:34)
[2018-05-29] MEDS: AMLODIPINE 10 MG TAB PO (09:00)
[2018-05-29] MEDS: BUPIVACAINE 0.5%/EPI (SDV) 30 ML INJ (10:03)
[2018-05-29] MEDS: POLYMYXIN/BACITRACIN 1L IRRIG (10:03)
[2018-05-29] MEDS ORDERED: ROPIVACAINE 0.5 % 30 ML VIAL (10:45)
[2018-05-29] MEDS ORDERED: LIDOCAINE 2% (SDV) 5 ML INJ (10:45)
[2018-05-29] MEDS ORDERED: CEFAZOLIN 1 GM INJ (10:45)
[2018-05-29] MEDS ORDERED: ETOMIDATE 20 MG INJ (10:45)
[2018-05-29] MEDS ORDERED: ONDANSETRON 4 MG INJ (10:46)
[2018-05-29] MEDS ORDERED: SEVOFLURANE 15 MIN (11:00)
[2018-05-29] MEDS ORDERED: ROPIVACAINE 0.2% 20 ML VIAL (11:02)
[2018-05-29] MEDS ORDERED: morphine 4 MG/ML VIAL IV (11:07)
[2018-05-29] MEDS ORDERED: DIPHENHYDRAMINE 50 MG INJ IV (12:00)
[2018-05-29] MEDS ORDERED: ONDANSETRON 4 MG INJ IV (12:00)
[2018-05-29] MEDS ORDERED: METOCLOPRAMIDE 10 MG INJ IV (12:00)
[2018-05-29] MEDS ORDERED: morphine (1 MG/ML) 10ML SYRINGE IV (12:00)
[2018-05-29] MEDS: FENTAnyl 50 MCG/ML VIAL IV (12:04)
[2018-05-29] MEDS: CEFAZOLIN 1 GM/50 ML (PMX) 50 ML IVPB ×2 (12:16→23:14)
[2018-05-29] MEDS: morphine 2 MG INJ IV ×2 (12:21→14:12)
[2018-05-29] MEDS: 1/2 NS + KCL 20 MEQ 1,000 ML IV (13:52)
[2018-05-29] MEDS: ATORVASTATIN 40 MG TAB PO (20:18)
[2018-05-29] MEDS ORDERED: Insulin NOVOLOG SS MILD Algorithm (SS with meals and bedtime) SC (21:00)
[2018-05-29] MEDS ORDERED: INSULIN ASPART [NOVOLOG] 3 ML PEN SC (21:00)
[2018-05-30 05:14] LABS: ADD MAN DIFF? NO
[2018-05-30 05:20] LABS: WHITE BLOOD COUNT 6.6 10^3/ul (4.8-10.8)
[2018-05-30 05:20] LABS: BASOPHILS % 0.3 % (0.0-2.0); EOSINOPHILS % 0.6 % (0.0-7.0); HEMATOCRIT 35.1 % (37.0-47.0); LYMPHOCYTES # 0.8 10^3/ul (0.8-2.9); LYMPHOCYTES % 12.8 % (15.0-51.0); MEAN CORPUSCULAR HEMOGLOBIN 30.6 pg (29.0-33.0); MEAN CORPUSCULAR HGB CONC 31.3 g/dl (32.0-37.0); MEAN CORPUSCULAR VOLUME 97.5 fl (82.0-101.0); MEAN PLATELET VOLUME 10.9 fl (7.4-10.4); MONOCYTE # 0.6 10^3/ul (0.3-0.9); MONOCYTES % 8.5 % (0.0-11.0); NEUTROPHIL # 5.1 10^3/ul (1.6-7.5); NEUTROPHILS % 77.3 % (39.0-77.0); PLATELET COUNT 164 10^3/UL (140-415); RED CELL DISTRIBUTION WIDTH 13.6 % (11.5-14.5)
[2018-05-30] MEDS: PANTOPRAZOLE (EC) 40 MG TAB PO (05:46)
[2018-05-30 05:52] LABS: ANION GAP 14 (5-13); BLOOD UREA NITROGEN 34 mg/dl (7-20); CALCIUM 8.5 mg/dl (8.4-10.2); CARBON DIOXIDE 29 mmol/L (21-31); CHLORIDE 96 mmol/L (97-110); CREATININE 6.62 mg/dl (0.44-1.00); Estimated GFR 6 mL/min (>60); GLUCOSE 133 mg/dl (70-220); MAGNESIUM 2.2 mg/dl (1.7-2.5); PHOSPHORUS 5.5 mg/dl (2.5-4.9); SODIUM 139 mmol/L (135-144)
[2018-05-30 06:21] LABS: POTASSIUM 6.6 mmol/L (3.5-5.1)
[2018-05-30] MEDS: NA POLYST SULFON 15 GM/60 ML BTL PO (07:04)
[2018-05-30] MEDS: ONDANSETRON 4 MG INJ IV (08:14)
[2018-05-30] MEDS: SEVELAMER CARBONATE 800 MG TABLET PO ×3 (08:17→17:42)
[2018-05-30] MEDS: AMLODIPINE 10 MG TAB PO (08:18)
[2018-05-30] MEDS: INSULIN ASPART [NOVOLOG] 3 ML PEN SC ×4 (08:20→22:56)
[2018-05-30] MEDS: CALCIUM ACETATE 667 MG CAP PO ×3 (09:00→17:42)
[2018-05-30] MEDS: morphine 2 MG INJ IV ×4 (10:02→23:01)
[2018-05-30] MEDS: HYDROCODONE/APAP (5/325) TAB PO ×2 (11:39→16:13)
[2018-05-30] MEDS: BISACODYL (EC) 5 MG TAB PO (16:17)
[2018-05-30] MEDS: DOCUSATE SODIUM 100 MG CAP PO (16:17)
[2018-05-30] MEDS: ATORVASTATIN 40 MG TAB PO (23:01)
[2018-05-31 05:18] LABS: ADD MAN DIFF? NO
[2018-05-31 05:34] LABS: BASOPHILS % 0.3 % (0.0-2.0); EOSINOPHILS # 0.1 10^3/ul (0.0-0.5); EOSINOPHILS % 1.3 % (0.0-7.0); HEMATOCRIT 33.5 % (37.0-47.0); HEMOGLOBIN 10.7 g/dl (12.0-16.0); LYMPHOCYTES # 1.1 10^3/ul (0.8-2.9); LYMPHOCYTES % 17.5 % (15.0-51.0); MEAN CORPUSCULAR HEMOGLOBIN 30.8 pg (29.0-33.0); MEAN CORPUSCULAR HGB CONC 31.9 g/dl (32.0-37.0); MEAN CORPUSCULAR VOLUME 96.5 fl (82.0-101.0); MEAN PLATELET VOLUME 11.2 fl (7.4-10.4); MONOCYTE # 0.6 10^3/ul (0.3-0.9); MONOCYTES % 10.2 % (0.0-11.0); NEUTROPHIL # 4.3 10^3/ul (1.6-7.5); NEUTROPHILS % 70.5 % (39.0-77.0); PLATELET COUNT 151 10^3/UL (140-415); RED BLOOD COUNT 3.47 10^6/ul (4.20-5.40); RED CELL DISTRIBUTION WIDTH 13.7 % (11.5-14.5)
[2018-05-31 05:34] LABS: WHITE BLOOD COUNT 6.1 10^3/ul (4.8-10.8)
[2018-05-31 06:06] LABS: ANION GAP 13 (5-13); BLOOD UREA NITROGEN 20 mg/dl (7-20); CALCIUM 8.6 mg/dl (8.4-10.2); CARBON DIOXIDE 32 mmol/L (21-31); CHLORIDE 95 mmol/L (97-110); CREATININE 4.99 mg/dl (0.44-1.00); Estimated GFR 9 mL/min (>60); GLUCOSE 135 mg/dl (70-220); MAGNESIUM 2.1 mg/dl (1.7-2.5); PHOSPHORUS 5.1 mg/dl (2.5-4.9); POTASSIUM 4.6 mmol/L (3.5-5.1); SODIUM 140 mmol/L (135-144)
[2018-05-31] MEDS: PANTOPRAZOLE (EC) 40 MG TAB PO (06:19)
[2018-05-31] MEDS: morphine 2 MG INJ IV ×2 (06:35→17:47)
[2018-05-31] MEDS: INSULIN ASPART [NOVOLOG] 3 ML PEN SC ×4 (08:11→21:00)
[2018-05-31] MEDS: SEVELAMER CARBONATE 800 MG TABLET PO ×3 (08:12→17:41)
[2018-05-31] MEDS: CALCIUM ACETATE 667 MG CAP PO ×3 (08:13→17:41)
[2018-05-31] MEDS: AMLODIPINE 10 MG TAB PO (09:00)
[2018-05-31] MEDS: HEPARIN 5,000 UNIT/1 ML VIAL SC ×2 (13:57→23:10)
[2018-05-31] MEDS: ONDANSETRON 4 MG INJ IV (17:54)
[2018-05-31] MEDS ORDERED: SOD CHLORIDE 0.9% 100 ML (21:06)
[2018-05-31] MEDS ORDERED: IOHEXOL 100 ML (21:06)
[2018-05-31] MEDS: ATORVASTATIN 40 MG TAB PO (21:16)
[2018-05-31] MEDS: BISACODYL (EC) 5 MG TAB PO (21:27)
[2018-05-31] MEDS: DOCUSATE SODIUM 100 MG CAP PO (21:27)
[2018-06-01] MEDS: PANTOPRAZOLE (EC) 40 MG TAB PO (05:45)
[2018-06-01 05:49] LABS: ADD MAN DIFF? NO
[2018-06-01 05:53] LABS: WHITE BLOOD COUNT 5.4 10^3/ul (4.8-10.8)
[2018-06-01 05:53] LABS: BASOPHILS % 0.4 % (0.0-2.0); EOSINOPHILS # 0.1 10^3/ul (0.0-0.5); EOSINOPHILS % 1.9 % (0.0-7.0); HEMATOCRIT 31.9 % (37.0-47.0); HEMOGLOBIN 10.1 g/dl (12.0-16.0); LYMPHOCYTES % 17.9 % (15.0-51.0); MEAN CORPUSCULAR HEMOGLOBIN 30.8 pg (29.0-33.0); MEAN CORPUSCULAR HGB CONC 31.7 g/dl (32.0-37.0); MEAN CORPUSCULAR VOLUME 97.3 fl (82.0-101.0); MEAN PLATELET VOLUME 11.6 fl (7.4-10.4); MONOCYTE # 0.5 10^3/ul (0.3-0.9); MONOCYTES % 9.5 % (0.0-11.0); NEUTROPHIL # 3.8 10^3/ul (1.6-7.5); NEUTROPHILS % 70.1 % (39.0-77.0); PLATELET COUNT 152 10^3/UL (140-415); RED BLOOD COUNT 3.28 10^6/ul (4.20-5.40); RED CELL DISTRIBUTION WIDTH 13.2 % (11.5-14.5)
[2018-06-01 06:46] LABS: CARBON DIOXIDE 29 mmol/L (21-31); CHLORIDE 100 mmol/L (97-110); POTASSIUM 4.5 mmol/L (3.5-5.1); SODIUM 140 mmol/L (135-144)
[2018-06-01 06:47] LABS: ANION GAP 11 (5-13); BLOOD UREA NITROGEN 24 mg/dl (7-20); CALCIUM 8.8 mg/dl (8.4-10.2); CREATININE 5.11 mg/dl (0.44-1.00); Estimated GFR 9 mL/min (>60); GLUCOSE 99 mg/dl (70-220)
[2018-06-01] MEDS: INSULIN ASPART [NOVOLOG] 3 ML PEN SC ×4 (08:31→20:55)
[2018-06-01] MEDS: AMLODIPINE 10 MG TAB PO (08:34)
[2018-06-01] MEDS: SEVELAMER CARBONATE 800 MG TABLET PO ×3 (08:34→17:25)
[2018-06-01] MEDS: CALCIUM ACETATE 667 MG CAP PO ×3 (08:34→17:25)
[2018-06-01] MEDS: HEPARIN 5,000 UNIT/1 ML VIAL SC ×2 (08:39→21:00)
[2018-06-01] MEDS: morphine 2 MG INJ IV ×3 (09:44→21:44)
[2018-06-01] MEDS: DIPHENHYDRAMINE 25 MG CAP PO (10:34)
[2018-06-01] MEDS: HYDROCODONE/APAP (5/325) TAB PO (10:56)
[2018-06-01] MEDS: ATORVASTATIN 40 MG TAB PO (20:55)
[2018-06-01] MEDS: BISACODYL (EC) 5 MG TAB PO (20:55)
[2018-06-01] MEDS: DOCUSATE SODIUM 100 MG CAP PO (20:55)
[2018-06-02] MEDS: PANTOPRAZOLE (EC) 40 MG TAB PO (06:22)
[2018-06-02] MEDS: INSULIN ASPART [NOVOLOG] 3 ML PEN SC ×3 (07:00→17:30)
[2018-06-02] MEDS: SEVELAMER CARBONATE 800 MG TABLET PO ×3 (08:56→17:30)
[2018-06-02] MEDS: CALCIUM ACETATE 667 MG CAP PO ×3 (08:57→18:00)
[2018-06-02] MEDS: HEPARIN 5,000 UNIT/1 ML VIAL SC (08:59)
[2018-06-02] MEDS: AMLODIPINE 10 MG TAB PO (08:59)
== END 2018-06-02 20:20 | disposition home or self-care (01) | DRG 510 ==
LOC: FTE 13:20 → 2NE 19:32
PROC: 0PSK04Z Reposition Right Ulna with Internal Fixation Device, Open Approach (ICD-10-PCS; principal; 2018-05-29 07:30)
PROC: 5A1D70Z Performance of Urinary Filtration, Intermittent, Less than 6 Hours Per Day (ICD-10-PCS; 2018-05-29 08:24)
DX: S52.031A Displaced fracture of olecranon process with intraarticular extension of right ulna, initial encounter for closed fracture (principal); N18.6 End stage renal disease; I50.43 Acute on chronic combined systolic (congestive) and diastolic (congestive) heart failure; I13.2 Hypertensive heart and chronic kidney disease with heart failure and with stage 5 chronic kidney disease, or end stage renal disease; E11.22 Type 2 diabetes mellitus with diabetic chronic kidney disease; Z99.2 Dependence on renal dialysis; E87.5 Hyperkalemia; I44.7 Left bundle-branch block, unspecified; D63.1 Anemia in chronic kidney disease; W01.0XXA Fall on same level from slipping, tripping and stumbling without subsequent striking against object, initial encounter
CPT/HCPCS: 71045; 73070; 73080-RT; 80048; 80053; 80061; 82550; 82553; 82962; 83036; 83735; 84100; 84443; 84484; 85025; 85610; 85730; 87081; 87340; 90935; 93005; 93306; 96374; 96375; 97116; 97162; 97530; 99285-25

== ENCOUNTER 2018-09-06 15:23 | Inpatient (IN) | payer MEDICARE, OTHER ==
[2018-09-06 16:36] LABS: ADD MAN DIFF? NO
[2018-09-06 16:44] LABS: WHITE BLOOD COUNT 8.7 10^3/ul (4.8-10.8)
[2018-09-06 16:44] LABS: BASOPHILS % 0.3 % (0.0-2.0); EOSINOPHILS # 0.1 10^3/ul (0.0-0.5); EOSINOPHILS % 1.3 % (0.0-7.0); HEMATOCRIT 34.7 % (37.0-47.0); HEMOGLOBIN 10.9 g/dl (12.0-16.0); LYMPHOCYTES # 1.2 10^3/ul (0.8-2.9); LYMPHOCYTES % 14.1 % (15.0-51.0); MEAN CORPUSCULAR HEMOGLOBIN 29.1 pg (29.0-33.0); MEAN CORPUSCULAR HGB CONC 31.4 g/dl (32.0-37.0); MEAN CORPUSCULAR VOLUME 92.5 fl (82.0-101.0); MEAN PLATELET VOLUME 11.2 fl (7.4-10.4); MONOCYTE # 0.5 10^3/ul (0.3-0.9); MONOCYTES % 5.8 % (0.0-11.0); NEUTROPHIL # 6.8 10^3/ul (1.6-7.5); NEUTROPHILS % 77.9 % (39.0-77.0); PLATELET COUNT 154 10^3/UL (140-415); RED BLOOD COUNT 3.75 10^6/ul (4.20-5.40); RED CELL DISTRIBUTION WIDTH 15.3 % (11.5-14.5)
[2018-09-06 16:59] LABS: LACTIC ACID 1.5 mmol/L (0.5-2.0)
[2018-09-06 17:02] LABS: ALANINE AMINOTRANSFERASE 25 IU/L (13-69); ALBUMIN 4.2 g/dl (3.3-4.9); ALKALINE PHOSPHATASE 153 IU/L (42-121); ANION GAP 13 (5-13); ASPARTATE AMINO TRANSFERASE 23 IU/L (15-46); BILIRUBIN,INDIRECT 0.5 mg/dl (0-1.1); BILIRUBIN,TOTAL 0.5 mg/dl (0.2-1.3); BLOOD UREA NITROGEN 22 mg/dl (7-20); CALCIUM 8.6 mg/dl (8.4-10.2); CARBON DIOXIDE 34 mmol/L (21-31); CHLORIDE 91 mmol/L (97-110); CREATININE 5.58 mg/dl (0.44-1.00); Estimated GFR 8 mL/min (>60); GLUCOSE 159 mg/dl (70-220); SODIUM 138 mmol/L (135-144)
[2018-09-06 17:04] LABS: POTASSIUM 5.9 mmol/L (3.5-5.1)
[2018-09-06 17:11] LABS: INR 1.06; PROTIME 13.9 Sec (11.9-14.9); PT RATIO 1.1
[2018-09-06 17:12] LABS: PARTIAL THROMBOPLASTIN TIME 33.3 Sec (23.0-35.0); TROPONIN-I < 0.012 ng/ml (0.000-0.120)
[2018-09-06] MEDS: ALBUTEROL 0.5% (NEB) 2.5 MG/0.5 ML AMP INH (17:48)
[2018-09-06] MEDS: DEXTROSE 50% 50 ML SYRINGE IV (17:51)
[2018-09-06] MEDS: INSULIN REGULAR, HUMAN 100 UNIT/1 ML 3ML VIAL IVP (17:53)
[2018-09-06] MEDS ORDERED: DEXTROSE 50% 50 ML SYRINGE IV (18:00)
[2018-09-06] MEDS: SODIUM POLYSTYRENE 15 GM KIT (POWDER + SORBITOL) PO (18:05)
[2018-09-06] MEDS: morphine 2 MG INJ IV ×2 (18:08→23:14)
[2018-09-06] MEDS: ONDANSETRON 4 MG INJ IV (18:08)
[2018-09-06] MEDS ORDERED: MAGNESIUM HYDROXIDE 30ML CUP PO (19:00)
[2018-09-06] MEDS ORDERED: LORAZEPAM 2 MG INJ IV (19:00)
[2018-09-06] MEDS ORDERED: NITROGLYCERIN (SL) 0.4 MG TAB SL (19:00)
[2018-09-06] MEDS ORDERED: NACL 0.9% 3 ML SYG IV (19:00)
[2018-09-06] MEDS ORDERED: hydrALAzine 20 MG INJ IV (19:00)
[2018-09-06 19:34] LABS: INR 1.11; PROTIME 14.4 Sec (11.9-14.9); PT RATIO 1.1
[2018-09-06 19:35] LABS: PARTIAL THROMBOPLASTIN TIME 33.6 Sec (23.0-35.0)
[2018-09-06 19:48] LABS: FREE T4 (FREE THYROXINE) 1.92 ng/dl (0.78-2.44)
[2018-09-06] MEDS: CEPASTAT LOZENGE MT ×2 (20:42→22:56)
[2018-09-06 20:52] LABS: LACTIC ACID 2.4 mmol/L (0.5-2.0)
[2018-09-06] MEDS: ATORVASTATIN 20 MG TAB PO (21:51)
[2018-09-06] MEDS: ACETAMINOPHEN 325 MG TAB PO (23:07)
[2018-09-07 05:39] LABS: ADD MAN DIFF? NO
[2018-09-07 05:42] LABS: BASOPHILS % 0.3 % (0.0-2.0); EOSINOPHILS % 0.3 % (0.0-7.0); HEMOGLOBIN 10.2 g/dl (12.0-16.0); LYMPHOCYTES # 1.3 10^3/ul (0.8-2.9); LYMPHOCYTES % 12.1 % (15.0-51.0); MEAN CORPUSCULAR HEMOGLOBIN 28.9 pg (29.0-33.0); MEAN CORPUSCULAR HGB CONC 30.9 g/dl (32.0-37.0); MEAN CORPUSCULAR VOLUME 93.5 fl (82.0-101.0); MEAN PLATELET VOLUME 10.8 fl (7.4-10.4); MONOCYTE # 0.8 10^3/ul (0.3-0.9); NEUTROPHIL # 8.6 10^3/ul (1.6-7.5); NEUTROPHILS % 79.9 % (39.0-77.0); PLATELET COUNT 136 10^3/UL (140-415); RED BLOOD COUNT 3.53 10^6/ul (4.20-5.40); RED CELL DISTRIBUTION WIDTH 15.4 % (11.5-14.5)
[2018-09-07 05:42] LABS: WHITE BLOOD COUNT 10.7 10^3/ul (4.8-10.8)
[2018-09-07] MEDS: ACETAMINOPHEN 325 MG TAB PO (06:07)
[2018-09-07] MEDS: PANTOPRAZOLE (EC) 40 MG TAB PO (06:10)
[2018-09-07 06:23] LABS: ANION GAP 15 (5-13); BLOOD UREA NITROGEN 30 mg/dl (7-20); CALCIUM 7.9 mg/dl (8.4-10.2); CARBON DIOXIDE 34 mmol/L (21-31); CHLORIDE 91 mmol/L (97-110); CREATININE 6.64 mg/dl (0.44-1.00); Estimated GFR 6 mL/min (>60); GLUCOSE 150 mg/dl (70-220); POTASSIUM 5.6 mmol/L (3.5-5.1); SODIUM 140 mmol/L (135-144)
[2018-09-07 06:26] LABS: CHOLESTEROL 123 mg/dl (100-200)
[2018-09-07 06:26] LABS: HDL CHOLESTEROL 41 mg/dl (35-98); LDL CHOLESTEROL,CALCULATED 66 mg/dl; TRIGLYCERIDES 80 mg/dl (0-149)
[2018-09-07] MEDS: morphine 2 MG INJ IV ×2 (07:08→19:54)
[2018-09-07] MEDS: CALCIUM ACETATE 667 MG CAP PO ×3 (07:39→18:11)
[2018-09-07 09:53] LABS: HEPATITIS B SURFACE ANTIGEN NEGATIVE (NEGATIVE)
[2018-09-07] MEDS: ASPIRIN (EC) 81 MG TAB PO (12:13)
[2018-09-07] MEDS: HYDROCODONE/APAP (5/325) TAB PO (12:14)
[2018-09-07] MEDS: AMLODIPINE 10 MG TAB PO (12:14)
[2018-09-07] MEDS: CEPASTAT LOZENGE MT (13:51)
[2018-09-07] MEDS: MULTIVIT/CA CARB/B CMPLX/FA TAB PO (18:10)
[2018-09-07 20:16] LABS: LACTIC ACID 1.2 mmol/L (0.5-2.0)
[2018-09-07] MEDS: ATORVASTATIN 20 MG TAB PO (20:45)
[2018-09-07] MEDS: GUAIFENESIN 20 MG/ML 5ML CUP PO (20:46)
[2018-09-08] MEDS: morphine 2 MG INJ IV (02:28)
[2018-09-08] MEDS: GUAIFENESIN 20 MG/ML 5ML CUP PO ×5 (02:35→20:39)
[2018-09-08 05:52] LABS: ADD MAN DIFF? NO
[2018-09-08 05:58] LABS: WHITE BLOOD COUNT 11.7 10^3/ul (4.8-10.8)
[2018-09-08 05:58] LABS: BASOPHILS % 0.3 % (0.0-2.0); EOSINOPHILS # 0.1 10^3/ul (0.0-0.5); EOSINOPHILS % 0.4 % (0.0-7.0); HEMATOCRIT 31.5 % (37.0-47.0); HEMOGLOBIN 9.8 g/dl (12.0-16.0); LYMPHOCYTES # 1.1 10^3/ul (0.8-2.9); LYMPHOCYTES % 9.6 % (15.0-51.0); MEAN CORPUSCULAR HEMOGLOBIN 29.7 pg (29.0-33.0); MEAN CORPUSCULAR HGB CONC 31.1 g/dl (32.0-37.0); MEAN CORPUSCULAR VOLUME 95.5 fl (82.0-101.0); MEAN PLATELET VOLUME 11.4 fl (7.4-10.4); MONOCYTES % 8.1 % (0.0-11.0); NEUTROPHIL # 9.5 10^3/ul (1.6-7.5); NEUTROPHILS % 81.1 % (39.0-77.0); PLATELET COUNT 154 10^3/UL (140-415); RED CELL DISTRIBUTION WIDTH 14.7 % (11.5-14.5)
[2018-09-08] MEDS: PANTOPRAZOLE (EC) 40 MG TAB PO (06:29)
[2018-09-08 06:31] LABS: ANION GAP 11 (5-13); BLOOD UREA NITROGEN 26 mg/dl (7-20); CALCIUM 8.3 mg/dl (8.4-10.2); CARBON DIOXIDE 31 mmol/L (21-31); CHLORIDE 95 mmol/L (97-110); CREATININE 5.33 mg/dl (0.44-1.00); Estimated GFR 8 mL/min (>60); GLUCOSE 173 mg/dl (70-220); POTASSIUM 5.1 mmol/L (3.5-5.1); SODIUM 137 mmol/L (135-144)
[2018-09-08] MEDS ORDERED: PENDING SANTYL ORDER FOR WOUND CARE XX (07:30)
[2018-09-08] MEDS: ASPIRIN (EC) 81 MG TAB PO (08:38)
[2018-09-08] MEDS: CALCIUM ACETATE 667 MG CAP PO ×3 (08:38→16:34)
[2018-09-08] MEDS: AMLODIPINE 10 MG TAB PO (08:39)
[2018-09-08] MEDS: MULTIVIT/CA CARB/B CMPLX/FA TAB PO (08:40)
[2018-09-08] MEDS: CEPASTAT LOZENGE MT ×3 (13:01→22:53)
[2018-09-08] MEDS: HYDROCODONE/APAP (5/325) TAB PO ×2 (16:34→22:53)
[2018-09-08] MEDS: ATORVASTATIN 20 MG TAB PO (20:39)
[2018-09-08] MEDS: GUAIFENESIN/CODEINE 5ML CUP PO (23:38)
[2018-09-09] MEDS: CEPASTAT LOZENGE MT ×4 (01:36→20:01)
[2018-09-09] MEDS: ALBUTEROL/IPRATROPIUM (NEB) 3 ML AMP HHN (02:00)
[2018-09-09] MEDS: DIPHENHYDRAMINE 50 MG INJ IV (02:16)
[2018-09-09] MEDS: GUAIFENESIN 20 MG/ML 5ML CUP PO (02:25)
[2018-09-09] MEDS: morphine 2 MG INJ IV (03:04)
[2018-09-09] MEDS: BENZONATATE 100 MG CAP PO ×2 (03:04→20:02)
[2018-09-09] MEDS: PANTOPRAZOLE (EC) 40 MG TAB PO (05:43)
[2018-09-09 05:46] LABS: ADD MAN DIFF? NO
[2018-09-09 05:55] LABS: BASOPHILS % 0.3 % (0.0-2.0); EOSINOPHILS # 0.1 10^3/ul (0.0-0.5); EOSINOPHILS % 1.3 % (0.0-7.0); HEMATOCRIT 27.6 % (37.0-47.0); HEMOGLOBIN 8.8 g/dl (12.0-16.0); LYMPHOCYTES # 1.4 10^3/ul (0.8-2.9); LYMPHOCYTES % 14.1 % (15.0-51.0); MEAN CORPUSCULAR HEMOGLOBIN 29.8 pg (29.0-33.0); MEAN CORPUSCULAR HGB CONC 31.9 g/dl (32.0-37.0); MEAN CORPUSCULAR VOLUME 93.6 fl (82.0-101.0); MEAN PLATELET VOLUME 11.2 fl (7.4-10.4); MONOCYTE # 0.8 10^3/ul (0.3-0.9); MONOCYTES % 7.5 % (0.0-11.0); NEUTROPHIL # 7.6 10^3/ul (1.6-7.5); NEUTROPHILS % 76.2 % (39.0-77.0); PLATELET COUNT 132 10^3/UL (140-415); RED BLOOD COUNT 2.95 10^6/ul (4.20-5.40); RED CELL DISTRIBUTION WIDTH 14.5 % (11.5-14.5)
[2018-09-09 06:40] LABS: ANION GAP 12 (5-13); BLOOD UREA NITROGEN 40 mg/dl (7-20); CALCIUM 8.1 mg/dl (8.4-10.2); CARBON DIOXIDE 30 mmol/L (21-31); CHLORIDE 91 mmol/L (97-110); CREATININE 7.35 mg/dl (0.44-1.00); Estimated GFR 6 mL/min (>60); GLUCOSE 164 mg/dl (70-220); POTASSIUM 4.4 mmol/L (3.5-5.1); SODIUM 133 mmol/L (135-144)
[2018-09-09] MEDS: HYDROCODONE/APAP (5/325) TAB PO ×3 (07:32→20:02)
[2018-09-09] MEDS: MULTIVIT/CA CARB/B CMPLX/FA TAB PO (08:33)
[2018-09-09] MEDS: ASPIRIN (EC) 81 MG TAB PO (08:33)
[2018-09-09] MEDS: CALCIUM ACETATE 667 MG CAP PO ×3 (08:33→17:30)
[2018-09-09] MEDS: DOCUSATE SODIUM 100 MG CAP PO ×2 (08:39→20:01)
[2018-09-09] MEDS: GUAIFENESIN/CODEINE 5ML CUP PO ×2 (13:35→17:30)
[2018-09-09] MEDS: AMLODIPINE 10 MG TAB PO (13:39)
[2018-09-09] MEDS ORDERED: PETROLATUM 5 GM OINT TOP (16:45)
[2018-09-09] MEDS: ATORVASTATIN 20 MG TAB PO (20:02)
[2018-09-10] MEDS: CEPASTAT LOZENGE MT ×2 (02:05→04:19)
[2018-09-10] MEDS: GUAIFENESIN/CODEINE 5ML CUP PO (02:05)
[2018-09-10] MEDS: HYDROCODONE/APAP (5/325) TAB PO (04:19)
[2018-09-10] MEDS: ONDANSETRON 4 MG INJ IV (04:49)
[2018-09-10] MEDS: BENZONATATE 100 MG CAP PO (04:51)
[2018-09-10] MEDS: PANTOPRAZOLE (EC) 40 MG TAB PO (05:11)
[2018-09-10] MEDS: morphine 2 MG INJ IV (05:13)
[2018-09-10 05:55] LABS: ADD MAN DIFF? NO
[2018-09-10 05:57] LABS: WHITE BLOOD COUNT 9.5 10^3/ul (4.8-10.8)
[2018-09-10 05:57] LABS: BASOPHILS % 0.3 % (0.0-2.0); EOSINOPHILS # 0.1 10^3/ul (0.0-0.5); EOSINOPHILS % 1.3 % (0.0-7.0); HEMATOCRIT 30.5 % (37.0-47.0); HEMOGLOBIN 9.5 g/dl (12.0-16.0); LYMPHOCYTES # 1.1 10^3/ul (0.8-2.9); LYMPHOCYTES % 11.2 % (15.0-51.0); MEAN CORPUSCULAR HGB CONC 31.1 g/dl (32.0-37.0); MEAN PLATELET VOLUME 11.1 fl (7.4-10.4); MONOCYTE # 0.8 10^3/ul (0.3-0.9); MONOCYTES % 8.3 % (0.0-11.0); NEUTROPHIL # 7.5 10^3/ul (1.6-7.5); NEUTROPHILS % 78.5 % (39.0-77.0); PLATELET COUNT 165 10^3/UL (140-415); RED BLOOD COUNT 3.28 10^6/ul (4.20-5.40); RED CELL DISTRIBUTION WIDTH 14.6 % (11.5-14.5)
[2018-09-10 06:32] LABS: ANION GAP 14 (5-13); BLOOD UREA NITROGEN 25 mg/dl (7-20); CALCIUM 8.7 mg/dl (8.4-10.2); CARBON DIOXIDE 29 mmol/L (21-31); CHLORIDE 94 mmol/L (97-110); CREATININE 5.53 mg/dl (0.44-1.00); Estimated GFR 8 mL/min (>60); GLUCOSE 164 mg/dl (70-220); POTASSIUM 4.7 mmol/L (3.5-5.1); SODIUM 137 mmol/L (135-144)
[2018-09-10] MEDS: MULTIVIT/CA CARB/B CMPLX/FA TAB PO (08:08)
[2018-09-10] MEDS: DOCUSATE SODIUM 100 MG CAP PO (08:08)
[2018-09-10] MEDS: ASPIRIN (EC) 81 MG TAB PO (08:08)
[2018-09-10] MEDS: CALCIUM ACETATE 667 MG CAP PO (08:08)
[2018-09-10] MEDS: AMLODIPINE 10 MG TAB PO (08:09)
== END 2018-09-10 12:52 | disposition home or self-care (01) | DRG 152 ==
LOC: 6WM 18:29 → E/R 15:23
PROC: 5A1D70Z Performance of Urinary Filtration, Intermittent, Less than 6 Hours Per Day (ICD-10-PCS; 2018-09-07)
PROC: 5A1D70Z Performance of Urinary Filtration, Intermittent, Less than 6 Hours Per Day (ICD-10-PCS; principal; 2018-09-08)
DX: J06.9 Acute upper respiratory infection, unspecified (principal); N18.6 End stage renal disease; I13.2 Hypertensive heart and chronic kidney disease with heart failure and with stage 5 chronic kidney disease, or end stage renal disease; I50.9 Heart failure, unspecified; E11.8 Type 2 diabetes mellitus with unspecified complications; E11.22 Type 2 diabetes mellitus with diabetic chronic kidney disease; E11.40 Type 2 diabetes mellitus with diabetic neuropathy, unspecified; E87.5 Hyperkalemia; E78.5 Hyperlipidemia, unspecified; D63.8 Anemia in other chronic diseases classified elsewhere; Z79.4 Long term (current) use of insulin; Z79.82 Long term (current) use of aspirin; Z99.2 Dependence on renal dialysis
CPT/HCPCS: 36415; 71045; 80048; 80053; 80061; 82962; 83036; 83605; 84439; 84443; 84484; 85025; 85610; 85730; 87040-91; 87081; 87340; 87400; 90935; 93005; 94640; 94664; 96374; 96375; 97161; 99285-25

== ENCOUNTER 2018-10-04 20:18 | Emergency (ER) | payer MEDICARE, OTHER ==
[2018-10-04] MEDS: ONDANSETRON (ODT) 4 MG TAB ODT (21:32)
[2018-10-04] MEDS: HYDROCODONE/APAP (5/325) TAB PO (21:33)
== END 2018-10-04 22:55 | disposition home or self-care (01) ==
LOC: E/R 20:18
DX: M79.89 Other specified soft tissue disorders (principal); I10 Essential (primary) hypertension; Z79.82 Long term (current) use of aspirin
CPT/HCPCS: 93970; 99284-25

== ENCOUNTER 2018-11-19 14:56 | Day surgery (SDC) | payer MEDICARE, OTHER ==
[2018-11-19 17:42] LABS: POTASSIUM 3.9 mmol/L (3.5-5.1)
[2018-11-19] MEDS ORDERED: MIDAZOLAM 1 MG/ML 2 ML INJ (18:15)
[2018-11-19] MEDS ORDERED: FENTAnyl 50 MCG/ML VIAL (18:15)
[2018-11-19] MEDS ORDERED: CEFAZOLIN 1 GM INJ (18:59)
[2018-11-19] MEDS ORDERED: ETOMIDATE 20 MG INJ (18:59)
[2018-11-19] MEDS ORDERED: ONDANSETRON 4 MG INJ (18:59)
[2018-11-19] MEDS ORDERED: LIDOCAINE 2% (SDV) 5 ML INJ (18:59)
[2018-11-19] MEDS ORDERED: ONDANSETRON 4 MG INJ IV (19:30)
[2018-11-19] MEDS ORDERED: MEPERIDINE 25 MG INJ IV (19:30)
[2018-11-19] MEDS ORDERED: METOCLOPRAMIDE 10 MG INJ IV (19:30)
[2018-11-19] MEDS ORDERED: FENTAnyl 50 MCG/ML VIAL IV (19:30)
[2018-11-19] MEDS ORDERED: hydrALAzine 20 MG INJ IV (19:30)
[2018-11-19] MEDS ORDERED: LABETALOL HCL 20MG INJ IV (19:30)
[2018-11-19] MEDS ORDERED: HYDROmorphONE 1 MG/5 ML IV SYRINGE IV (19:30)
[2018-11-19] MEDS: DIPHENHYDRAMINE 50 MG INJ IV (19:42)
[2018-11-19] MEDS: HYDROmorphONE 1 MG/5 ML IV SYRINGE IV (19:42)
== END 2018-11-19 20:45 | disposition home or self-care (01) ==
LOC: SDS 14:56
DX: E11.621 Type 2 diabetes mellitus with foot ulcer (principal); E11.42 Type 2 diabetes mellitus with diabetic polyneuropathy; I73.9 Peripheral vascular disease, unspecified; I10 Essential (primary) hypertension; Z79.82 Long term (current) use of aspirin
CPT/HCPCS: 11044; 82962; 84132; 87070; 87075; 87102; 87116; 88304